=== PATIENT | female | born 1985 | race American Indian/Alaskan Native ===

== ENCOUNTER 2020-09-03 15:49 | Emergency (ER) | payer SELFPAY ==
[~2020-09-03] VITALS: Ht 152.4 cm; Wt 64.0 kg
--- OUTSIDE RECORDS SUMMARY | ~2020-09-03 | XMS | Encounter Summary ---
Demographics + + + | Address | [address] | | | [place] [address] | + + + | Home Phone | | + + + | Preferred Language | Unknown | + + + | Marital Status | | + + + | Anglican Affiliation | 1041 | + + + | Race | Unknown | + + + | Ethnic Group | or | + + + Author + + + | Author | [facility] | | | and [place] | + + + | Organization | [facility] | | | and [place] | + + + | Address | Unknown | + + + | Phone | Unavailable | + + + Support + + + + + | Name | Relationship | Address | Phone | + + + + + | Kristine Gonzáles | ECON | [address] | | | | | [place] [address] | | + + + + + Care Team Providers + +------+ + | Care E Business Project Manager Name | Role | Phone | + +------+ + PCP | Unavailable | + +------+ + Encounter Details +--------+ + + + + | Date | Type | Department | Care Team | Description | +--------+ + + + + | 08/26/ | Hospital | [facility] | | | | 2008 | Encounter | MED CTR EMERGENCY | | | | | | CENTER [address] | | | | | | [place] | | | | | | [address] | | | | | | [phone] | | | +--------+ + + + + Social History + +-------+ +--------+------+ | Tobacco Use | Types | Packs/Day | Years | Date | | | | | Used | | + +-------+ +--------+------+ | Never Assessed | | | | | + +-------+ +--------+------+ + + + | Sex Assigned at | Date Recorded | | | | + + + | Not on file | | + + + documented as of this encounter Plan of Treatment Not on filedocumented as of this encounter Visit Diagnoses Not on filedocumented in this encounter"
--- OUTSIDE RECORDS SUMMARY | ~2020-09-03 | XMS | Encounter Summary ---
Demographics + + + | Address | [address] | | | [place] [address] | + + + | Home Phone | | + + + | Preferred Language | Unknown | + + + | Marital Status | | + + + | Anabaptist Affiliation | 1041 | + + + | Race | Unknown | + + + | Ethnic Group | or | + + + Author + + + | Author | [facility] | | | and [place] | + + + | Organization | [facility] | | | [...] [address] | | | | | [place] [address] | | + + + + + Care Team Providers + +------+ + | Care Mis Specialist Name | Role | Phone | + +------+ + PCP | Unavailable | + +------+ + Encounter Details +--------+ + + + + | Date | Type | Department | Care Team | Description | +--------+ + + + + | 12/04/ | Hospital | [facility] | | | | 1991 | Encounter | MED CTR EMERGENCY | | | | | | CENTER [address] | | | | | | [place] | | | | | | [address] | | | | | | [phone] | | | +--------+ + + + [...]
--- OUTSIDE RECORDS SUMMARY | ~2020-09-03 | XMS | Encounter Summary ---
Demographics + + + | Address | [address] | | | [place] [address] | + + + | Home Phone | | + + + | Preferred Language | Unknown | + + + | Marital Status | | + + + | Episcopal Affiliation | 1041 | + + + | Race | Unknown | + + + | Ethnic Group | or | + + + Author + + + | Author | [facility] | | | and [place] | + + + | Organization | [facility] | | | [...] [place] | | | | | [place] [address] | | + + + + + Care Team Providers + +------+ + | Care Food Preparation Kitchen Aide Name | Role | Phone | + +------+ + PCP | Unavailable | + +------+ + Encounter Details +--------+ + + + + | Date | Type | Department | Care Team | Description | +--------+ + + + + | 04/30/ | Hospital | [facility] | | | | 2004 | Encounter | MED CTR EMERGENCY | | | | | | CENTER [address] | | | | | | [place] | | | | | | [address] | | | | | | [phone] | | | +--------+ + + + [...]
--- OUTSIDE RECORDS SUMMARY | ~2020-09-03 | XMS | Encounter Summary ---
Demographics + + + | Address | [address] | | | [place] [address] | + + + | Home Phone | | + + + | Preferred Language | Unknown | + + + | Marital Status | | + + + | Sabianism Affiliation | 1041 | + + + | Race | Unknown | + + + | Ethnic Group | or | + + + Author + + + | Author | [facility] | | | and [place] | + + + | Organization | [facility] | | | and [place] | + + + | Address | Unknown | + + + | Phone | Unavailable | + + + Support + + + + + | Name | Relationship | Address | Phone | + + + + + | Kristine Gonzáles | ECON | [address] | | | | | [place] [address] | | + + + + + Care Team Providers + +------+ + | Care Shelter Advocate Name | Role | Phone | + +------+ + PCP | Unavailable | + +------+ + Encounter Details +--------+ + + + + | Date | Type | Department | Care Team | Description | +--------+ + + + + | 05/03/ | Hospital | [facility] | Roberto Dhaliwal, | | | 2001 | Encounter | MED CTR WOMENS | [address] | | | | | [facility] [address] | [place] | | | | | [address], | [place] [address] | | | | | [place] [address] | [phone] | | | | | [phone] | | | +--------+ + + + [...]
--- OUTSIDE RECORDS SUMMARY | ~2020-09-03 | XMS | Encounter Summary ---
Demographics + + + | Address | [address] | | | [place] [address] | + + + | Home Phone | | + + + | Preferred Language | Unknown | + + + | Marital Status | | + + + | Yazdanism Affiliation | 1041 | + + + | Race | Unknown | + + + | Ethnic Group | or | + + + Author + + + | Author | [facility] | | | and [place] | + + + | Organization | [facility] | | | and [place] | + + + | Address | Unknown | + + + | Phone | Unavailable | + + + Support + + + + + | Name | Relationship | Address | Phone | + + + + + | Kristine Gonzáles | ECON | [address] | | | | | [place] [address] | | + + + + + Care Team Providers + +------+ + | Care Steel Sash Erector Name | Role | Phone | + +------+ + PCP | Unavailable | + +------+ + Encounter Details +--------+ + + + + | Date | Type | Department | Care Team | Description | +--------+ + + + + | 01/09/ | Hospital | [facility] | | | | 1992 | Encounter | MED CTR EMERGENCY | | | | | | CENTER [address] | | | | | | [place] | | | | | | [address] | | | | | | [phone] | | | +--------+ + + + [...]
--- OUTSIDE RECORDS SUMMARY | ~2020-09-03 | XMS | Encounter Summary ---
Demographics + + + | Address | [address] | | | [place] [address] | + + + | Home Phone | | + + + | Preferred Language | Unknown | + + + | Marital Status | | + + + | Muslim Affiliation | 1041 | + + + [...] | | | | | [place] [address] | | + + + + + Care Team Providers + +------+ + | Care Shingle Grader Name | Role | Phone | + +------+ + PCP | Unavailable | + +------+ + Encounter Details +--------+ + + + + | Date | Type | Department | Care Team | Description | +--------+ + + + + | 02/06/ | Hospital | [facility] | | | | 2008 | Encounter | MED CTR XRAY [address] | | | | | | [address] | | | | | | [place] [address] | | | | | | [phone] | | | +--------+ + + + [...]
--- OUTSIDE RECORDS SUMMARY | ~2020-09-03 | XMS | Encounter Summary ---
Demographics + + + | Address | [address] | | | [place] [address] | + + + | Home Phone | | + + + | Preferred Language | Unknown | + + + | Marital Status | | + + + | Sikhism Affiliation | 1041 | + + + | Race | Unknown | + + + | Ethnic Group | or | + + + Author + + + | Author | [facility] | | | and [place] | + + + | Organization | [facility] | | | [...] [place] | | | | | [place] [address] | | + + + + + Care Team Providers + +------+ + | Care Partition Assembly Machine Operator Name | Role | Phone | + +------+ + PCP | Unavailable | + +------+ + Encounter Details +--------+ + + + + | Date | Type | Department | Care Team | Description | +--------+ + + + + | 10/05/ | Hospital | [facility] | | | | 1995 | Encounter | MED CTR EMERGENCY | | | | | | CENTER [address] | | | | | | [place] | | | | | | [address] | | | | | | [phone] | | | +--------+ + + + [...]
--- OUTSIDE RECORDS SUMMARY | ~2020-09-03 | XMS | Encounter Summary ---
Demographics + + + | Address | [address] | | | [place] [address] | + + + | Home Phone | | + + + | Preferred Language | Unknown | + + + | Marital Status | | + + + | Moravian Affiliation | 1041 | + + + | Race | Unknown | + + + | Ethnic Group | or | + + + Author + + + | Author | [facility] | | | and [place] | + + + | Organization | [facility] | | | and [place] | + + + | Address | Unknown | + + + | Phone | Unavailable | + + + Support + + + + + | Name | Relationship | Address | Phone | + + + + + | Kristine Gonzáles | ECON | [address] | | | | | [place] [address] | | + + + + + Care Team Providers + +------+ + | Care 21 Dealer Name | Role | Phone | + +------+ + PCP | Unavailable | + +------+ + Encounter Details +--------+ + + + + | Date | Type | Department | Care Team | Description | +--------+ + + + + | 05/22/ | Hospital | [facility] | Daryn Hyatt | | | 2001 | Encounter | MED CTR EMERGENCY | MD Crist[address] | | | | | [place] [address] | [place] | | | | | [place], [place] | [place] [address] | | | | | [address] | [phone] | | | | | [phone] | | | +--------+ + + + [...]
--- OUTSIDE RECORDS SUMMARY | ~2020-09-03 | XMS | Encounter Summary ---
Demographics + + + | Address | [address] | | | [place] [address] | + + + | Home Phone | | + + + | Preferred Language | Unknown | + + + | Marital Status | | + + + | Samaritan Affiliation | 1041 | + + + | Race | Unknown | + + + | Ethnic Group | or | + + + Author + + + | Author | [facility] | | | and [place] | + + + | Organization | [facility] | | | and [...] | | | | | [place] [address] | | + + + + + Care Team Providers + +------+ + | Care Sports Medicine Masseur Name | Role | Phone | + +------+ + PCP | Unavailable | + +------+ + Encounter Details +--------+ + + + + | Date | Type | Department | Care Team | Description | +--------+ + + + + | 01/15/ | Hospital | [facility] | | | | 2003 | Encounter | MED CTR WOMENS | | | | | | [facility] [address] | | | | | | [address], | | | | | | [place] [address] | | | | | | [phone] | | | +--------+ + + + [...]
--- OUTSIDE RECORDS SUMMARY | ~2020-09-03 | XMS | Encounter Summary ---
Demographics + + + | Address | [address] | | | [place] [address] | + + + | Home Phone | | + + + | Preferred Language | Unknown | + + + | Marital Status | | + + + | Rastafarian Affiliation | 1041 | + + + | Race | Unknown | + + + | Ethnic Group | or | + + + Author + + + | Author | [facility] | | | and [place] | + + + | Organization | [facility] | | | and [place] | + + + | Address | Unknown | + + + | Phone | Unavailable | + + + Support + + + + + | Name | Relationship | Address | Phone | + + + + + | Kristine Gonzáles | ECON | [address] | | | | | [place] [address] | | + + + + + Care Team Providers + +------+ + | Care Business Support Professional Name | Role | Phone | + +------+ + PCP | Unavailable | + +------+ + Encounter Details +--------+ + + + + | Date | Type | Department | Care Team | Description | +--------+ + + + + | 06/09/ | Hospital | [facility] | | | | 1994 | Encounter | MED CTR EMERGENCY | | | | | | CENTER [address] | | | | | | [place] | | | | | | [address] | | | | | | [phone] | | | +--------+ + + + [...]
--- OUTSIDE RECORDS SUMMARY | ~2020-09-03 | XMS | Encounter Summary ---
Demographics + + + | Address | [address] | | | [place] [address] | + + + | Home Phone | | + + + | Preferred Language | Unknown | + + + | Marital Status | | + + + | Gnosticist Affiliation | 1041 | + + + | Race | Unknown | + + + | Ethnic Group | or | + + + Author + + + | Author | [facility] | | | and [place] | + + + | Organization | [facility] | | | [...] | | | | | [place] [address] | | + + + + + Care Team Providers + +------+ + | Care Clinical Dental Technician Name | Role | Phone | + +------+ + PCP | Unavailable | + +------+ + Encounter Details +--------+ + + + + | Date | Type | Department | Care Team | Description | +--------+ + + + + | 04/30/ | Hospital | [facility] | Roberto Dhaliwal, | | | 2001 | Encounter | MED CTR WOMENS | [address] | | | | | [facility] [address] | [place] | | | | | [address], | [place] [address] | | | | | [place] [address] | [phone] | | | | | [phone] | | | +--------+ + + + [...]
--- OUTSIDE RECORDS SUMMARY | ~2020-09-03 | XMS | Encounter Summary ---
Demographics + + + | Address | [address] | | | [place] [address] | + + + | Home Phone | | + + + | Preferred Language | Unknown | + + + | Marital Status | | + + + | Nondenominational Affiliation | 1041 | + + + | Race | Unknown | + + + | Ethnic Group | or | + + + Author + + + | Author | [facility] | | | and [place] | + + + | Organization | [facility] | | [...] [place] | | | | | [place] [address] | | + + + + + Care Team Providers + +------+ + | Care Air Sealing Technician Name | Role | Phone | + +------+ + PCP | Unavailable | + +------+ + Encounter Details +--------+ + + + + | Date | Type | Department | Care Team | Description | +--------+ + + + + | 06/10/ | Hospital | [facility] | | | | 2001 | Encounter | MED CTR EMERGENCY | | | | | | CENTER [address] | | | | | | [place] | | | | | | [address] | | | | | | [phone] | | | +--------+ + + + [...]
--- OUTSIDE RECORDS SUMMARY | ~2020-09-03 | XMS | Encounter Summary ---
Demographics + + + | Address | [address] | | | [place] [address] | + + + | Home Phone | | + + + | Preferred Language | Unknown | + + + | Marital Status | | + + + | Baptism Affiliation | 1041 | + + + | Race | Unknown | + + + | Ethnic Group | or | + + + Author + + + | Author | [facility] | | | and [place] | + + + | Organization | [facility] | | | and [place] | + + + | Address | Unknown | + + + | Phone | Unavailable | + + + Support + + + + + | Name | Relationship | Address | Phone | + + + + + | Kristine Gonzáles | ECON | [address] | | | | | [place] [address] | | + + + + + Care Team Providers + +------+ + | Care Front Window Cashier Name | Role | Phone | + +------+ + PCP | Unavailable | + +------+ + Encounter Details +--------+ + + + + | Date | Type | Department | Care Team | Description | +--------+ + + + + | 07/22/ | Abstract | [place] [facility] | DATA MIGRATION ODIN | | | 2011 | | Conversion Location | SR | | | | | [address] [facility] | | | | | | [place], [place] | | | | | | [address] | | | | | | [phone] | | | +--------+ + + + [...] + + documented as of this encounter Last Filed Vital Signs + + + + + | Vital Sign | Reading | Time Taken | Comments | + + + + + | Blood Pressure | 105/62 | 03/11/2011 12:00 AM | | | | | PDT | | + + + + + | Pulse | - | - | | + + + + + | Temperature | - | - | | + + + + + | Respiratory Rate | - | - | | + + + + + | Oxygen Saturation | - | - | | + + + + + | Inhaled Oxygen | - | - | | | Concentration | | | | + + + + + | Weight | 61.7 kg (136 lb) | 03/11/2011 12:00 AM | | | | | PDT | | + + + + + | Height | 152.4 cm (5') | 04/12/2010 12:00 AM | | | | | PDT | | + + + + + | Body Mass Index | 26.56 | 04/12/2010 12:00 AM | | | | | PDT | | + + + + + documented in this encounter Plan of Treatment Not on filedocumented as of this encounter Visit Diagnoses Not on filedocumented in this encounter"
--- OUTSIDE RECORDS SUMMARY | ~2020-09-03 | XMS | Encounter Summary ---
Demographics + + + | Address | [address] | | | [place] [address] | + + + | Home Phone | | + + + | Preferred Language | Unknown | + + + | Marital Status | | + + + | Church Affiliation | 1041 | + + + | Race | Unknown | + + + | Ethnic Group | or | + + + Author + + + | Author | [facility] | | | and [place] | + + + | Organization | [facility] | | | [...] [place] | | | | | [place] [address] | | + + + + + Care Team Providers + +------+ + | Care Lobby Concierge Name | Role | Phone | + +------+ + PCP | Unavailable | + +------+ + Encounter Details +--------+ + + + + | Date | Type | Department | Care Team | Description | +--------+ + + + + | 11/20/ | Hospital | [facility] | Benjy Tripathi | Sprain and Strain of | | 2008 | Encounter | [address] | [address] | Unspecified Site of | | | | [address] | [place] [address] | Wrist | | | | [place], [place] | [phone] | | | | | [address] | | | | | | [phone] | | | +--------+ + + + [...] filedocumented as of this encounter Visit Diagnoses + + | Diagnosis | + + | Sprain of wrist, unspecified site | + + documented in this encounter"
--- OUTSIDE RECORDS SUMMARY | ~2020-09-03 | XMS | Encounter Summary ---
Demographics + + + | Address | [address] | | | [place] [address] | + + + | Home Phone | | + + + | Preferred Language | Unknown | + + + | Marital Status | | + + + | Latter-Day Affiliation | 1041 | + + + | Race | Unknown | + + + | Ethnic Group | or | + + + Author + + + | Author | [facility] | | | and [place] | + + + | Organization | [facility] | | | and [...] | | | | | [place] [address] | | + + + + + Care Team Providers + +------+ + | Care Abstract Searcher Name | Role | Phone | + +------+ + PCP | Unavailable | + +------+ + Encounter Details +--------+ + + + + | Date | Type | Department | Care Team | Description | +--------+ + + + + | 06/19/ | Hospital | [facility] | | | | 2002 | Encounter | MED CTR WOMENS | | | | | | [facility] [address] | | | | | | [address], | | | | | | [place] [address] | | | | | | [phone] | | | +--------+ + + + [...]
--- OUTSIDE RECORDS SUMMARY | ~2020-09-03 | XMS | Encounter Summary ---
Demographics + + + | Address | [address] | | | [place] [address] | + + + | Home Phone | | + + + | Preferred Language | Unknown | + + + | Marital Status | | + + + | Tenriism Affiliation | 1041 | + + + | Race | Unknown | + + + | Ethnic Group | or | + + + Author + + + | Author | [facility] | | | and [place] | + + + | Organization | [facility] | | | [...] | | | | | [place] [address] | | + + + + + Care Team Providers + +------+ + | Care Germination Worker Name | Role | Phone | + +------+ + PCP | Unavailable | + +------+ + Encounter Details +--------+ + + + + | Date | Type | Department | Care Team | Description | +--------+ + + + + | 01/03/ | Hospital | [facility] | Abdullahi Ferreira | | | 2001 | Encounter | MED CTR WOMENS | [place] [address] | | | | | [facility] [address] | [place] | | | | | [address], | [address] | | | | | [place] [address] | [phone] | | | | | [phone] | | | +--------+ + + + [...]
--- OUTSIDE RECORDS SUMMARY | ~2020-09-03 | XMS | Encounter Summary ---
Demographics + + + | Address | [address] | | | [place] [address] | + + + | Home Phone [...] | | | | | [place] [address] | | + + + + + Care Team Providers + +------+ + | Care Transfer Table Operator Name | Role | Phone | + +------+ + PCP | Unavailable | + +------+ + Encounter Details +--------+ + + + + | Date | Type | Department | Care Team | Description | +--------+ + + + + | 09/13/ | Hospital | [facility] | | | | 2002 | Encounter | MED CTR GENERIC OP | | | | | | CONV DEPT [address] | | | | | | [place], | | | | | | [place] [address] | | | | | | [phone] | | | +--------+ + + + [...]
--- OUTSIDE RECORDS SUMMARY | ~2020-09-03 | XMS | Encounter Summary ---
Demographics + + + | Address | [address] | | | [place] [address] | + + + | Home Phone | | + + + | Preferred Language | Unknown | + + + | Marital Status | | + + + | Sabianism Affiliation | 1041 | + + + | Race | Unknown | + + + | Ethnic Group | or | + + + Author + + + | Author | [facility] | | | and [place] | + + + | Organization | [facility] | | [...] [place] | | | | | [place] [address] | | + + + + + Care Team Providers + +------+ + | Care Director Nursery School Name | Role | Phone | + +------+ + PCP | Unavailable | + +------+ + Encounter Details +--------+ + + + + | Date | Type | Department | Care Team | Description | +--------+ + + + + | 08/12/ | Hospital | [facility] | | | | 2001 | Encounter | MED CTR EMERGENCY | | | | | | CENTER [address] | | | | | | [place] | | | | | | [address] | | | | | | [phone] | | | +--------+ + + + [...]
--- OUTSIDE RECORDS SUMMARY | ~2020-09-03 | XMS | Encounter Summary ---
Demographics + + + | Address | [address] | | | [place] [address] | + + + | Home Phone | | + + + | Preferred Language | Unknown | + + + | Marital Status | | + + + | Amish Affiliation | 1041 | + + + | Race | Unknown | + + + | Ethnic Group | or | + + + Author + + + | Author | [facility] | | | and [place] | + + + | Organization | [facility] | | [...] [place] | | | | | [place] [address] | | + + + + + Care Team Providers + +------+ + | Care Relationship Consultant Name | Role | Phone | + +------+ + PCP | Unavailable | + +------+ + Encounter Details +--------+ + + + + | Date | Type | Department | Care Team | Description | +--------+ + + + + | 05/30/ | Hospital | [facility] | Daryn Hyatt | | | 2001 | Encounter | MED CTR EMERGENCY | MD Cristian [address] | | | | | [place] [address] | [place] | | | | | [place], [place] | [place] [address] | | | | | [address] | [phone] | | | | | [phone] | | | +--------+ + + + [...]
--- OUTSIDE RECORDS SUMMARY | ~2020-09-03 | XMS | Encounter Summary ---
Demographics + + + | Address | [address] | | | [place] [address] | + + + | Home Phone | | + + + | Preferred Language | Unknown | + + + | Marital Status | | + + + | Baptism Affiliation | 1041 | + + + | Race | Unknown | + + + | Ethnic Group | or | + + + Author + + + | Author | [facility] | | | and [place] | + + + | Organization | [facility] | | | and [place] | + + + | Address | Unknown | + + + | Phone | Unavailable | + + + Support + + + + + | Name | Relationship | Address | Phone | + + + + + | Kristine Gonzáles | ECON | [address] | | | | | [place] [address] | | + + + + + Care Team Providers + +------+ + | Care Utility Appraiser Name | Role | Phone | + +------+ + PCP | Unavailable | + +------+ + Encounter Details +--------+ + + + + | Date | Type | Department | Care Team | Description | +--------+ + + + + | 05/21/ | Hospital | [facility] | | | | 2001 | Encounter | MED CTR EMERGENCY | | | | | | CENTER [address] | | | | | | [place] | | | | | | [address] | | | | | | [phone] | | | +--------+ + + + [...]
--- OUTSIDE RECORDS SUMMARY | ~2020-09-03 | XMS | Encounter Summary ---
Demographics + + + | Address | [address] | | | [place] [address] | + + + | Home Phone | | + + + | Preferred Language | Unknown | + + + | Marital Status | | + + + | Confucianist Affiliation | 1041 | + + + | Race | Unknown | + + + | Ethnic Group | or | + + + Author + + + | Author | [facility] | | | and [place] | + + + | Organization | [facility] | | [...] [address] | | | | | [place] [address] | | + + + + + Care Team Providers + +------+ + | Care Section Beamer Name | Role | Phone | + +------+ + PCP | Unavailable | + +------+ + Encounter Details +--------+ + + + + | Date | Type | Department | Care Team | Description | +--------+ + + + + | 10/13/ | Hospital | [facility] | | | | 1999 | Encounter | MED CTR EMERGENCY | | | | | | CENTER [address] | | | | | | [place] | | | | | | [address] | | | | | | [phone] | | | +--------+ + + + [...]
--- OUTSIDE RECORDS SUMMARY | ~2020-09-03 | XMS | Encounter Summary ---
Demographics + + + | Address | [address] | | | [place] [address] | + + + | Home Phone | | + + + | Preferred Language | Unknown | + + + | Marital Status | | + + + | Latter Day Affiliation | 1041 | + + + | Race | Unknown | + + + | Ethnic Group | or | + + + Author + + + | Author | [facility] | | | and [place] | + + + | Organization | [facility] | | | and [place] | + + + | Address | Unknown | + + + | Phone | Unavailable | + + + Support + + + + + | Name | Relationship | Address | Phone | + + + + + | Kristine Gonzáles | ECON | [address] | | | | | [place] [address] | | + + + + + Care Team Providers + +------+ + | Care Work Manager Name | Role | Phone | + +------+ + PCP | Unavailable | + +------+ + Encounter Details +--------+ + + + + | Date | Type | Department | Care Team | Description | +--------+ + + + + | 02/01/ | Hospital | [facility] | | | | 2003 - | Encounter | MED CTR [facility] | | | | | | [facility] [address] | | | | 02/03/ | | [address], | | | | 2003 | | [place] [address] | | | | | | [phone] | | | +--------+ + + + [...]
--- OUTSIDE RECORDS SUMMARY | ~2020-09-03 | XMS | Encounter Summary ---
Demographics + + + | Address | [address] | | | [place] [address] | + + + | Home Phone | | + + + | Preferred Language | Unknown | + + + | Marital Status | | + + + | Rastafari Affiliation | 1041 | + + + [...] [address] | | | | | [place] [address] | | + + + + + Care Team Providers + +------+ + | Care Granite Cutter Name | Role | Phone | + +------+ + PCP | Unavailable | + +------+ + Encounter Details +--------+ + + + + | Date | Type | Department | Care Team | Description | +--------+ + + + + | 11/02/ | Hospital | [facility] | | | | 1991 | Encounter | MED CTR EMERGENCY | | | | | | CENTER [address] | | | | | | [place] | | | | | | [address] | | | | | | [phone] | | | +--------+ + + + [...]
--- OUTSIDE RECORDS SUMMARY | ~2020-09-03 | XMS | Encounter Summary ---
Demographics + + + | Address | [address] | | | [place] [address] | + + + | Home Phone | | + + + | Preferred Language | Unknown | + + + | Marital Status | | + + + | Druze Affiliation | 1041 | + + + | Race | Unknown | + + + | Ethnic Group | or | + + + Author + + + | Author | [facility] | | | and [place] | + + + | Organization | [facility] | [...] [address] | | | | | [place] [address] | | + + + + + Care Team Providers + +------+ + | Care Central Supply Worker Name | Role | Phone | + +------+ + PCP | Unavailable | + +------+ + Encounter Details +--------+ + + + + | Date | Type | Department | Care Team | Description | +--------+ + + + + | 05/16/ | Hospital | [facility] | | | | 2003 | Encounter | MED CTR EMERGENCY | | | | | | CENTER [address] | | | | | | [place] | | | | | | [address] | | | | | | [phone] | | | +--------+ + + + [...]
--- OUTSIDE RECORDS SUMMARY | ~2020-09-03 | XMS | Encounter Summary ---
Demographics + + + | Address | [address] | | | [place] [address] | + + + | Home Phone | | + + + | Preferred Language | Unknown | + + + | Marital Status | | + + + | Presybeterian Affiliation | 1041 | + + + | Race | Unknown | + + + | Ethnic Group | or | + + + Author + + + | Author | [facility] | | | and [place] | + + + | Organization | [facility] | | | [...] | | | | | [place] [address] | | + + + + + Care Team Providers + +------+ + | Care Claims Adjustor Name | Role | Phone | + +------+ + PCP | Unavailable | + +------+ + Encounter Details +--------+ + + + + | Date | Type | Department | Care Team | Description | +--------+ + + + + | 05/10/ | Hospital | [facility] | | | | 2001 - | Encounter | MED CTR [facility] | | | | | | [facility] [address] | | | | 05/12/ | | [address], | | | | 2001 | | [place] [address] | | | | | | [phone] | | | +--------+ + + + [...]
--- OUTSIDE RECORDS SUMMARY | ~2020-09-03 | XMS | Encounter Summary ---
Demographics + + + | Address | [address] | | | [place] [address] | + + + | Home Phone | | + + + | Preferred Language | Unknown | + + + | Marital Status | | + + + | Sabianism Affiliation | 1041 | + + + | Race | Unknown | + + + | Ethnic Group | or | + + + Author + + + | Author | [facility] | | | and [place] | + + + | Organization | [facility] | | | and [...] | | | | | [place] [address] | | + + + + + Care Team Providers + +------+ + | Care Radio Frequency Technician Name | Role | Phone | + +------+ + PCP | Unavailable | + +------+ + Encounter Details +--------+ + + + + | Date | Type | Department | Care Team | Description | +--------+ + + + + | 05/02/ | Hospital | [facility] | Tejas Logan | | | 2002 | Encounter | MED CTR LABORATORY | A, DO [address] | | | | | [address] | [address] [place], | | | | | [place] | [place] [address] | | | | | [address] | [phone] | | | | | [phone] | | | +--------+ + + + [...]
--- OUTSIDE RECORDS SUMMARY | ~2020-09-03 | XMS | Encounter Summary ---
Demographics + + + | Address | [address] | | | [place] [address] | + + + | Home Phone | | + + + | Preferred Language | Unknown | + + + | Marital Status | | + + + | Confucianist Affiliation | 1041 | + + + | Race | Unknown | + + + | Ethnic Group | or | + + + Author + + + | Author | [facility] | | | and [place] | + + + | Organization | [facility] | | | and [...] | | | | | [place] [address] | | + + + + + Care Team Providers + +------+ + | Care Reception Specialist Name | Role | Phone | + +------+ + PCP | Unavailable | + +------+ + Encounter Details +--------+ + + + + | Date | Type | Department | Care Team | Description | +--------+ + + + + | 04/01/ | Hospital | [facility] | | | | 2001 | Encounter | MED CTR [facility] | | | | | | [facility] [address] | | | | | | [address], | | | | | | [place] [address] | | | | | | [phone] | | | +--------+ + + + [...]
--- OUTSIDE RECORDS SUMMARY | ~2020-09-03 | XMS | Encounter Summary ---
Demographics + + + | Address | [address] | | | [place] [address] | + + + | Home Phone | | + + + | Preferred Language | Unknown | + + + | Marital Status | | + + + | Latter Day Affiliation | 1041 | + + + | Race | Unknown | + + + | Ethnic Group | or | + + + Author + + + | Author | [facility] | | | and [place] | + + + | Organization | [facility] | | [...] | | | | | [place] [address] | | + + + + + Care Team Providers + +------+ + | Care Mechanical Assembly Name | Role | Phone | + +------+ + PCP | Unavailable | + +------+ + Encounter Details +--------+ + + + + | Date | Type | Department | Care Team | Description | +--------+ + + + + | 03/24/ | Hospital | [facility] | | | | 2001 | Encounter | MED CTR WOMENS | | | | | | [facility] [address] | | | | | | [address], | | | | | | [place] [address] | | | | | | [phone] | | | +--------+ + + + [...]
--- OUTSIDE RECORDS SUMMARY | ~2020-09-03 | XMS | Encounter Summary ---
Demographics + + + | Address | [address] | | | [place] [address] | + + + | Home Phone | | + + + | Preferred Language | Unknown | + + + | Marital Status | | + + + | Hoahaoism Affiliation | 1041 | + + + | Race | Unknown | + + + | Ethnic Group | or | + + + Author + + + | Author | [facility] | | | and [place] | + + + | Organization | [facility] | | | [...] [place] | | | | | [place] [address] | | + + + + + Care Team Providers + +------+ + | Care Hardware Installation Coordinator Name | Role | Phone | + +------+ + PCP | Unavailable | + +------+ + Encounter Details +--------+ + + + + | Date | Type | Department | Care Team | Description | +--------+ + + + + | 10/12/ | Hospital | [facility] | | | | 1999 | Encounter | MED CTR EMERGENCY | | | | | | CENTER [address] | | | | | | [place] | | | | | | [address] | | | | | | [phone] | | | +--------+ + + + [...]
--- OUTSIDE RECORDS SUMMARY | ~2020-09-03 | XMS | Encounter Summary ---
Demographics + + + | Address | [address] | | | [place] [address] | + + + | Home Phone | | + + + | Preferred Language | Unknown | + + + | Marital Status | | + + + | Mormonism Affiliation | 1041 | + + + | Race | Unknown | + + + | Ethnic Group | or | + + + Author + + + | Author | [facility] | | | and [place] | + + + | Organization | [facility] | [...] [address] | | | | | [place] [address] | | + + + + + Care Team Providers + +------+ + | Care Supervisor Self Service Store Name | Role | Phone | + +------+ + PCP | Unavailable | + +------+ + Encounter Details +--------+ + + + + | Date | Type | Department | Care Team | Description | +--------+ + + + + | 02/23/ | Hospital | [facility] | [place], | | | 2009 | Encounter | MED CTR XRAY [address] | [address] | | | | | [place] | [place] | | | | | [place], [place] [address] | [address] | | | | | [phone] | | | +--------+ + + + [...]
--- OUTSIDE RECORDS SUMMARY | ~2020-09-03 | XMS | Encounter Summary ---
Demographics + + + | Address | [address] | | | [place] [address] | + + + | Home Phone | | + + + | Preferred Language | Unknown | + + + | Marital Status | | + + + | Moravian Affiliation | 1041 | + + + | Race | Unknown | + + + | Ethnic Group | or | + + + Author + + + | Author | [facility] | | | and [place] | + + + | Organization | [facility] | | [...] | | | | | [place] [address] | | + + + + + Care Team Providers + +------+ + | Care Biodiesel Product Manager Name | Role | Phone | + +------+ + PCP | Unavailable | + +------+ + Encounter Details +--------+ + + + + | Date | Type | Department | Care Team | Description | +--------+ + + + + | 09/18/ | Hospital | [facility] | | | | 2003 | Encounter | MED CTR XRAY [address] | | | | | | [address] | | | | | | [place] [address] | | | | | | [phone] | | | +--------+ + + + [...]
--- OUTSIDE RECORDS SUMMARY | ~2020-09-03 | XMS | Encounter Summary ---
Demographics + + + | Address | [address] | | | [place] [address] | + + + | Home Phone | | + + + | Preferred Language | Unknown | + + + | Marital Status | | + + + | Religion Affiliation | 1041 | + + + | Race | Unknown | + + + | Ethnic Group | or | + + + Author + + + | Author | [facility] | | | and [place] | + + + | Organization | [facility] | | | and [place] | + + + | Address | Unknown | + + + | Phone | Unavailable | + + + Support + + + + + | Name | Relationship | Address | Phone | + + + + + | Kristine Gonzáles | ECON | [address] | | | | | [place] [address] | | + + + + + Care Team Providers + +------+ + | Care Senior Quality Manager Name | Role | Phone | + +------+ + PCP | Unavailable | + +------+ + Encounter Details +--------+ + + + + | Date | Type | Department | Care Team | Description | +--------+ + + + + | 08/23/ | Hospital | [facility] | | | | 2003 | Encounter | MED CTR GENERIC OP | | | | | | CONV DEPT [address] | | | | | | [place], | | | | | | [place] [address] | | | | | | [phone] | | | +--------+ + + + [...]
--- OUTSIDE RECORDS SUMMARY | ~2020-09-03 | XMS | Encounter Summary ---
Demographics + + + | Address | [address] | | | [place] [address] | + + + | Home Phone | | + + + | Preferred Language | Unknown | + + + | Marital Status | | + + + | Temple Affiliation | 1041 | + + + | Race | Unknown | + + + | Ethnic Group | or | + + + Author + + + | Author | [facility] | | | and [place] | + + + | Organization | [facility] | | | [...] [place] | | | | | [place] [address] | | + + + + + Care Team Providers + +------+ + | Care Clinical Ob Name | Role | Phone | + +------+ + PCP | Unavailable | + +------+ + Encounter Details +--------+ + + + + | Date | Type | Department | Care Team | Description | +--------+ + + + + | 02/07/ | Hospital | [facility] | | | | 2003 | Encounter | MED CTR EMERGENCY | | | | | | CENTER [address] | | | | | | [place] | | | | | | [address] | | | | | | [phone] | | | +--------+ + + + [...]
--- OUTSIDE RECORDS SUMMARY | ~2020-09-03 | XMS | Encounter Summary ---
Demographics + + + | Address | [address] | | | [place] [address] | + + + | Home Phone | | + + + | Preferred Language | Unknown | + + + | Marital Status | | + + + | Adventist Affiliation | 1041 | + + + | Race | Unknown | + + + | Ethnic Group | or | + + + Author + + + | Author | [facility] | | | and [place] | + + + | Organization | [facility] | | | [...] [place] | | | | | [place] [address] | | + + + + + Care Team Providers + +------+ + | Care Drawer Waxer Name | Role | Phone | + +------+ + PCP | Unavailable | + +------+ + Encounter Details +--------+ + + + + | Date | Type | Department | Care Team | Description | +--------+ + + + + | 12/05/ | Hospital | [facility] | | | | 2002 | Encounter | MED CTR EMERGENCY | | | | | | CENTER [address] | | | | | | [place] | | | | | | [address] | | | | | | [phone] | | | +--------+ + + + [...]
--- OUTSIDE RECORDS SUMMARY | ~2020-09-03 | XMS | Encounter Summary ---
Demographics + + + | Address | [address] | | | [place] [address] | + + + | Home Phone | | + + + | Preferred Language | Unknown | + + + | Marital Status | | + + + | Sabianist Affiliation | 1041 | + + + | Race | Unknown | + + + | Ethnic Group | or | + + + Author + + + | Author | [facility] | | | and [place] | + + + | Organization | [facility] | | | [...] | | | | | [place] [address] | | + + + + + Care Team Providers + +------+ + | Care Creative Recruiter Name | Role | Phone | + +------+ + PCP | Unavailable | + +------+ + Encounter Details +--------+ + + + + | Date | Type | Department | Care Team | Description | +--------+ + + + + | 12/31/ | Hospital | [facility] | | | | 2004 - | Encounter | MED CTR WOMENS | | | | | | [facility] [address] | | | | 01/02/ | | [address], | | | | 2004 | | [place] [address] | | | | | | [phone] | | | +--------+ + + + [...]
--- OUTSIDE RECORDS SUMMARY | ~2020-09-03 | XMS | Encounter Summary ---
Demographics + + + | Address | [address] | | | [place] [address] | + + + | Home Phone | | + + + | Preferred Language | Unknown | + + + | Marital Status | | + + + | Uatsdin Affiliation | [id number] | + + + [...] [address] | | | | | [place] [address] | | + + + + + Care Team Providers + +------+ + | Care Riveter Helper Name | Role | Phone | + +------+ + | No, Physician | PCP | Unavailable | + +------+ + Reason for Visit + + + | Reason | Comments | + + + | Leg Pain | | + + + | Sternum Pain | | + + + | Fall | | + + + Encounter Details +--------+ + + + + | Date | Type | Department | Care Team | Description | +--------+ + + + + | 07/03/ | Emergency | [facility] | Juan Carlos Lepe, | Sternal contusion, | | 2017 - | | [facility] | MD [address] | initial encounter | | | | CENTER [address] | [place] | (Primary Dx); | | 07/04/ | | [place] | [phone] | Contusion of | | 2016 | | [id number] | | multiple sites of | | | | [phone] | | right leg, initial | | | | | | encounter; Arm | | | | | | contusion, left, | | | | | | initial encounter | +--------+ + + + + Social History + + + +--------+------+ | Tobacco Use | Types | Packs/Day | Years | Date | | | | | Used | | + + + +--------+------+ | Current Every Day | Cigarettes | | | | | Smoker | | | | | + + + +--------+------+ + + +---------+ + | Alcohol Use | Drinks/Week | oz/Week | Comments | + + +---------+ + | Yes | | | occasionally | + + +---------+ + + + + | Sex Assigned at | Date Recorded | | | | + + + | Not on file | | + + + documented as of this encounter Last Filed Vital Signs + + + + + | Vital Sign | Reading | Time Taken | Comments | + + + + + | Blood Pressure | 100/85 | 07/04/2017 1:57 AM | | | | | PDT | | + + + + + | Pulse | 77 | 07/04/2017 1:57 AM | | | | | PDT | | + + + + + | Temperature | 36.9 C (98.4 F) | 07/03/2017 11:01 PM | | | | | PDT | | + + + + + | Respiratory Rate | 16 | 07/03/2017 11:01 PM | | | | | PDT | | + + + + + | Oxygen Saturation | 98% | 07/04/2017 1:56 AM | | | | | PDT | | + + + + + | Inhaled Oxygen | - | - | | | Concentration | | | | + + + + + | Weight | 54.4 kg (120 lb) | 07/03/2017 11:01 PM | | | | | PDT | | + + + + + | Height | 149.9 cm (4' 11") | 07/03/2017 11:01 PM | | | | | PDT | | + + + + + | Body Mass Index | 24.24 | 07/03/2017 11:01 PM | | | | | PDT | | + + + + + documented in this encounter Discharge Instructions AttachmentsThe following attachments cannot be sent through Care Everywhere.Soft Tissue Con tusion (Polish)documented in this encounter Medications at Time of Discharge + +------+ +---------+ + + | Medication | Sig | Dispensed | Refills | Start | End Date | | | | | | Date | | + +------+ +---------+ + + | | LIQD | | 0 | 07/23/20 | | | Pseudoeph-Doxylamine | | | | 12 | | | -DM-APAP (NYQUIL PO) | | | | | | + +------+ +---------+ + + documented as of this encounter ED Notes Juan Carlos Lepe MD - 07/03/2017 11:46 PM PDTFormatting of this note might be different fro m the original. eMERGENCY dEPARTMENT eNCOUnter CHIEF COMPLAINT Chief Complaint Patient presents with Leg Pain Sternum Pain Fall HPI Елена Gonzáles is a 32 y.o. female who presents complaining of pain and bruising over h er lower sternum, right knee, and left elbow. She states that 2 days ago she fell [place] the [place] some packages and bruised up these areas. She is able to breathe but has some pain with deep inspiration in her sternum. She denies any abdominal pain. She denies any li ghtheadedness or syncope. She also complains of pain in her right anterior knee with associa sindhu bruising although she is able to walk albeit with pain. She also complains of some pain in the left elbow but no pain with range of motion. PAST MEDICAL HISTORY History reviewed. No pertinent past medical history. SURGICAL HISTORY History reviewed. No pertinent surgical history. CURRENT MEDICATIONS Discharge Medication List as of 07/04/2017 2:16 CONTINUE these medications which have NOT CHANGED Details Okuwsqerk-Oggyofoksk-EY-APAP (NYQUIL PO) LIQD ALLERGIES No Known Allergies FAMILY HISTORY History reviewed. No pertinent family history. SOCIAL HISTORY Social History Social History Marital status: Spouse name: N/A Number of children: N/A Years of education: N/A Social History Main Topics Smoking status: Current Every Day Smoker Types: Cigarettes Smokeless tobacco: None Alcohol use Yes Comment: occasionally Drug use: No Sexual activity: Not Asked Other Topics Concern None Social History Narrative None REVIEW OF SYSTEMS A 12 system review of systems is otherwise negative except as noted in the HPI above. PHYSICAL EXAM VITAL SIGNS: (first vital signs):Temp: 36.9 C (98.4 F) Pulse: 108 Resp: 16 SpO2: 100 % BP: (!) 88/64 Constitutional: Well developed, Well nourished, No acute distress, Non-toxic appearance. HENT: Normocephalic, Atraumatic, Bilateral external ears normal, Oral mucosa moist, wood heel finisher ior pharynx no exudates, Nose normal. Neck-supple, nontender, no meningismus, No stridor. Eyes: PERRL, EOMI, Conjunctiva normal, No discharge. Respiratory: Breath sounds equal bilaterally, no adventitious sounds, lower sternal tender ness to palpation with associated ecchymosis, no crepitus or step-off Cardiovascular: Normal rate, normal S1, S2, no murmurs, rubs, or gallops GI: Abdomen soft, non-tender, non-distended, normal bowel sounds, no CVA tenderness : Musculoskeletal: Intact distal pulses, ecchymosis over the right lower leg and knee with n ormal range of motion and no instability to the knee capsule or joint, tenderness over the l eft proximal forearm without any foreign bodies noted, normal range of motion of the left el bow without any tenderness. Back- No tenderness. Skin: Warm, Dry, ecchymosis over the lower sternum with associated tenderness, ecchymosis over the left forearm with associated tenderness, ecchymosis over the right lower leg with a ssociated tenderness Lymphatic: Neurologic: Alert & oriented x 3, Cranial nerves II-XII intact, Normal sensation, motor, a nd strength in all four extremities, No focal deficits noted. Psychiatric: Affect normal, Judgment normal, Mood normal. Labs Reviewed CBC WITH DIFFERENTIAL - Abnormal; Notable for the following: Result Value % Basophils 1.4 (*) All other components within normal limits COMPREHENSIVE METABOLIC PANEL - Normal PROTIME INR - Normal EXTRA GREEN TOP TUBE URINALYSIS WITH MICROSCOPIC RADIOLOGY CT Results: Ct Chest Abdomen Pelvis W Contrast Result Date: 07/04/2017 CT CHEST ABDOMEN AND PELVIS WITH CONTRAST CLINICAL INFORMATION: Retrosternal chest pain, an d abdominal pain. COMPARISON: None. PROCEDURE: Axial images through the chest, abdomen and p bryson after the administration of 70 ml Omnipaque 350 intravenous contrast. Multiplanar maurice nstructions. At least one of the following CT dose optimization techniques were used: Automa sindhu exposure control; Adjustment of mA and/or kV according to patient size; Use of iterative reconstruction technique. FINDINGS: CHEST Lungs, Pleura and Airways: No significant pulmona ry abnormality. No airway narrowing or obstruction. No pleural effusion or pneumothorax. Med iastinum: No significant pericardial, great vessel or esophageal abnormality. No mediastinal mass. Lymph Nodes: No adenopathy. ABDOMEN Liver and Biliary: No gallbladder or biliary abno rmality. No significant liver abnormality. Pancreas, Spleen and Adrenals: No pancreatitis or pancreatic mass. No splenomegaly, splenic mass or splenic hemorrhage. No significant adrena l abnormality. Kidneys: No hydronephrosis, calculus or solid renal mass. Normal symmetric r enal enhancement pattern. ABDOMEN AND PELVIS Bowel: No small bowel or colonic dilation or ad jacent inflammation. No appendiceal dilation or inflammation. Vessels: No significant abnorm ality in the aorta or its proximal branches. No significant abnormality in the portal veins, mesenteric veins or systemic veins. Lymph Nodes: No adenopathy. Peritoneum and Retroperiton eum: No intraperitoneal free air, ascites or peritoneal mass. No significant retroperitoneal abnormality. PELVIS Genitourinary: Distal ureters and bladder appear normal. No pelvic mas ses. The uterus is anteverted, with length of approximately 9.5 cm. No focal adnexal abnorm ality. BODY WALL Soft Tissues: No hernia, mass or hemorrhage. Bones: No acute fracture or ve rtebral end plate destruction. No lytic or blastic lesion. IMPRESSION: 1. No acute abnormali ty of the chest, abdomen, or pelvis. 2. No evidence of sternal or rib fracture. No vertebra l compression fracture. Signed by: Dr. Cornell Pyle Report sent: 07/04/2017 1:27:11 AM Right knee x-ray reveals no acute abnormalities. Chest x-ray PA and lateral showed no acute findings. ED COURSE & MEDICAL DECISION MAKING Pertinent Labs & Imaging studies reviewed. (See chart for details) Patient presented with significant pain in the chest associated with traumatic injury to th e chest. This was in the lower chest. In addition she had some injuries to the left arm and right knee. CT imaging was obtained after negative x-ray because of patient's symptoms and s howed no acute internal injuries. Patient was given some fentanyl for pain in the ER and kerrie l be discharged home with a take home pack of hydrocodone. She should return if worsening or new concerning symptoms develop. Last Set of Vital Signs: Temp: 36.9 C (98.4 F) Pulse: 77 Resp: 16 SpO2: 98 % BP: 100/85 FINAL IMPRESSION 1. Sternal contusion, initial encounter 2. Contusion of multiple sites of right leg, initial encounter 3. Arm contusion, left, initial encounter PLAN Follow-up Information Max Bauer MD. Specialty: Internal Medicine Why: As needed Contact information: [address] [facility] [place] [address] Discharge Medication List as of 07/04/2017 2:16 Juan Carlos Lepe MD 07/04/17 0256 Cynthia Babin RN - 07/03/2017 11:00 PM PDTPatient reports she tripped on a cracked sidewalk and fell two days ago. Now has bruising from right knee to right ankle and reports it hurts to bend kne e. Also reports pain behind sternum that is currently 06/19. Able to move ankle without exa cerbating pain. d ocumented in this encounter Plan of Treatment Not on filedocumented as of this encounter Procedures + +--------+ + + + | Procedure Name | Priori | Date/Time | Associated Diagnosis | Comments | | | ty | | | | + +--------+ + + + | CT CHEST ABDOMEN | STAT | 07/04/2017 | | Results for this | | PELVIS W CONTRAST | | 1:08 AM | | procedure are in the | | | | PDT | | results section. | + +--------+ + + + | EXTRA GREEN TOP TUBE | STAT | 07/04/2017 | | Results for this | | | | 12:35 AM | | procedure are in the | | | | PDT | | results section. | + +--------+ + + + | PROTIME INR | STAT | 07/04/2017 | | Results for this | | | | 12:35 AM | | procedure are in the | | | | PDT | | results section. | + +--------+ + + + | CBC WITH | STAT | 07/04/2017 | | Results for this | | DIFFERENTIAL | | 12:35 AM | | procedure are in the | | | | PDT | | results section. | + +--------+ + + + | COMPREHENSIVE | STAT | 07/04/2017 | | Results for this | | METABOLIC PANEL | | 12:35 AM | | procedure are in the | | | | PDT | | results section. | + +--------+ + + + | XR CHEST PA AND | STAT | 07/04/2017 | | Results for this | | LATERAL | | 12:07 AM | | procedure are in the | | | | PDT | | results section. | + +--------+ + + + | XR KNEE RIGHT 3 VW | STAT | 07/04/2017 | | Results for this | | | | 12:07 AM | | procedure are in the | | | | PDT | | results section. | + +--------+ + + + documented in this encounter Results CT Chest Abdomen Pelvis w Contrast (07/04/2017 1:08 AM PDT) + + | Specimen | + + | | + + + + + | Narrative | Performed At | + + + | CT CHEST ABDOMEN AND PELVIS WITH CONTRAST CLINICAL | [facility] | | INFORMATION: Retrosternal chest pain, and abdominal pain. | | | COMPARISON: None. PROCEDURE: Axial images through the chest, | | | abdomen and pelvis after the administration of 70 ml Omnipaque 350 | | | intravenous contrast. Multiplanar reconstructions. FINDINGS: | | | CHEST Lungs, Pleura and Airways: No significant pulmonary | | | abnormality. No airway narrowing or obstruction. No pleural effusion | | | or pneumothorax. Mediastinum: No significant pericardial, great | | | vessel or esophageal abnormality. No mediastinal mass. Lymph Nodes: | | | No adenopathy. ABDOMEN Liver and Biliary: No gallbladder or | | | biliary abnormality. No significant liver abnormality. Pancreas, | | | Spleen and Adrenals: No pancreatitis or pancreatic mass. No | | | splenomegaly, splenic mass or splenic hemorrhage. No significant | | | adrenal abnormality. Kidneys: No hydronephrosis, calculus or solid | | | renal mass. Normal symmetric renal enhancement pattern. ABDOMEN | | | AND PELVIS Bowel: No small bowel or colonic dilation or adjacent | | | inflammation. No appendiceal dilation or inflammation. Vessels: No | | | significant abnormality in the aorta or its proximal branches. No | | | significant abnormality in the portal veins, mesenteric veins or | | | systemic veins. Lymph Nodes: No adenopathy. Peritoneum and | | | Retroperitoneum: No intraperitoneal free air, ascites or peritoneal | | | mass. No significant retroperitoneal abnormality. PELVIS | | | Genitourinary: Distal ureters and bladder appear normal. No pelvic | | | masses. The uterus is anteverted, with length of approximately 9.5 | | | cm. No focal adnexal abnormality. BODY WALL Soft Tissues: No | | | hernia, mass or hemorrhage. Bones: No acute fracture or vertebral end | | | plate destruction. No lytic or blastic lesion. IMPRESSION- 1. | | | No acute abnormality of the chest, abdomen, or pelvis. 2. No evidence | | | of sternal or rib fracture. No vertebral compression fracture. | | | Dictated and Signed by: Dakotah Bolanos MD Electronically signed: | | | 07/04/2017 10:51 AM | | + + + + + | Procedure Note | + + | Romeo, Rad Results In 07/04/2017 10:54 AM PDT | | CT CHEST ABDOMEN AND PELVIS WITH CONTRAST | | | | CLINICAL INFORMATION: | | Retrosternal chest pain, and abdominal pain. | | | | COMPARISON: | | None. | | | | PROCEDURE: | | Axial images through the chest, abdomen and pelvis after the | | administration of 70 ml Omnipaque 350 intravenous contrast. Multiplanar | | reconstructions. | | | | FINDINGS: | | CHEST | | Lungs, Pleura and Airways: No significant pulmonary abnormality. No | | airway narrowing or obstruction. No pleural effusion or pneumothorax. | | Mediastinum: No significant pericardial, great vessel or esophageal | | abnormality. No mediastinal mass. | | Lymph Nodes: No adenopathy. | | | | ABDOMEN | | Liver and Biliary: No gallbladder or biliary abnormality. No | | significant liver abnormality. | | Pancreas, Spleen and Adrenals: No pancreatitis or pancreatic mass. No | | splenomegaly, splenic mass or splenic hemorrhage. No significant | | adrenal abnormality. | | Kidneys: No hydronephrosis, calculus or solid renal mass. Normal | | symmetric renal enhancement pattern. | | | | ABDOMEN AND PELVIS | | Bowel: No small bowel or colonic dilation or adjacent inflammation. No | | appendiceal dilation or inflammation. | | Vessels: No significant abnormality in the aorta or its proximal | | branches. No significant abnormality in the portal veins, mesenteric | | veins or systemic veins. | | Lymph Nodes: No adenopathy. | | Peritoneum and Retroperitoneum: No intraperitoneal free air, ascites or | | peritoneal mass. No significant retroperitoneal abnormality. | | | | PELVIS | | Genitourinary: Distal ureters and bladder appear normal. No pelvic | | masses. The uterus is anteverted, with length of approximately 9.5 cm. | | No focal adnexal abnormality. | | | | BODY WALL | | Soft Tissues: No hernia, mass or hemorrhage. | | Bones: No acute fracture or vertebral end plate destruction. No lytic | | or blastic lesion. | | | | IMPRESSION- | | 1. No acute abnormality of the chest, abdomen, or pelvis. | | 2. No evidence of sternal or rib fracture. No vertebral compression | | fracture. | | | | Dictated and Signed by: Dakotah Bolanos MD | | Electronically signed: 07/04/2017 10:51 AM | + + + +---------+ + + | Performing | Address | City/State/ZIP Code | Phone Number | | Organization | | | | + +---------+ + + | [facility] | | | | + +---------+ + + Extra Green Top Tube (07/04/2017 12:35 AM PDT) + +-------+ + + + | Component | Value | Ref Range | Performed | Pathologist | | | | | At | Signature | + +-------+ + + + | Extra Green | Done | | [facility] | | | Top Tube | | | [facility] | | | | | | [facility] | | | | | | CENTER - | | | | | | LABORATORY | | + +-------+ + + + + + | Specimen | + + | Blood | + + + + + + + | Performing | Address | City/State/ZIP Code | Phone Number | | Organization | | | | + + + + + | [facility] | [address] | [place] | [phone] | | [facility] | | [address] | | | - LABORATORY | | | | + + + + + Protime INR (07/04/2017 12:35 AM PDT) + + + + + + | Component | Value | Ref Range | Performed | Pathologist | | | | | At | Signature | + + + + + + | Prothrombin | 12.4 | 11.3 - 13.9 | [facility] | | | Time | | seconds | [facility] | | | | | | MEDICAL | | | | | | CENTER - | | | | | | LABORATORY | | + + + + + + | INR | 0.91Comment: Usual Oral | 0.90 - 1.10 | [facility] | | | | Anticoagulation Range: | | [facility] | | | | 2.0 - 3.0High | | MEDICAL | | | | Level Oral | | CENTER - | | | | Anticoagulation Range: | | LABORATORY | | | | 2.5 - 3.5 | | | | + + + + + + + + | Specimen | + + | Blood | + + + + + + + | Performing | Address | City/State/ZIP Code | Phone Number | | Organization | | | | + + + + + | [facility] | [address] | [place] | [phone] | | [facility] | | [address] | | | - LABORATORY | | | | + + + + + Comprehensive Metabolic Panel (07/04/2017 12:35 AM PDT) + + + + + + | Component | Value | Ref Range | Performed | Pathologist | | | | | At | Signature | + + + + + + | Na | 138 | 136 - 149 | [facility] | | | | | mmol/L | [facility] | | | | | | MEDICAL | | | | | | CENTER - | | | | | | LABORATORY | | + + + + + + | K | 3.8 | 3.5 - 5.1 | [facility] | | | | | mmol/L | [facility] | | | | | | MEDICAL | | | | | | CENTER - | | | | | | LABORATORY | | + + + + + + | Cl | 107 | 98 - 109 mmol/L | [facility] | | | | | | [facility] | | | | | | MEDICAL | | | | | | CENTER - | | | | | | LABORATORY | | + + + + + + | CO2 | 25 | 24 - 31 mmol/L | [facility] | | | | | | [facility] | | | | | | MEDICAL | | | | | | CENTER - | | | | | | LABORATORY | | + + + + + + | Anion Gap | 6 | 3 - 16 mmol/L | [facility] | | | | | | [facility] | | | | | | MEDICAL | | | | | | CENTER - | | | | | | LABORATORY | | + + + + + + | Glucose | 105 | 70 - 109 mg/dL | [facility] | | | | | | [facility] | | | | | | MEDICAL | | | | | | CENTER - | | | | | | LABORATORY | | + + + + + + | BUN | 13 | 7 - 18 mg/dL | [facility] | | | | | | [facility] | | | | | | [facility] | | | | | | CENTER - | | | | | | LABORATORY | | + + + + + + | Creatinine | 0.80 | 0.60 - 1.30 | [facility] | | | | | mg/dL | [facility] | | | | | | [facility] | | | | | | CENTER - | | | | | | LABORATORY | | + + + + + + | eGFR, | >60Comment: GLOMERULAR | >=60 | [facility] | | | non- | FILTRATION | mL/min/1.73m2 | [facility] | | | [place] | RATE,ESTIMATED | | MEDICAL | | | | mL/min/1.64p6Fghx than | | CENTER - | | | | 60 Chronic kidney | | LABORATORY | | | | disease,if found over a | | | | | | 3-month period.Less than | | | | | | 15 Kidney failureFor | | | | | | | | | | | | Americans,multiply the | | | | | | calculated GFR by 1.21. | | | | | | | | | | + + + + + + | Calcium | 8.3 | 8.3 - 10.5 | [facility] | | | | | mg/dL | [facility] | | | | | | MEDICAL | | | | | | CENTER - | | | | | | LABORATORY | | + + + + + + | Albumin | 3.9 | 3.2 - 5.0 g/dL | [facility] | | | | | | [facility] | | | | | | MEDICAL | | | | | | CENTER - | | | | | | LABORATORY | | + + + + + + | Bilirubin | 0.6Comment: This is an | 0.1 - 1.5 mg/dL | [facility] | | | Total | appended report. These | | [facility] | | | | results have been | | MEDICAL | | | | appended to a previously | | CENTER - | | | | preliminary verified | | LABORATORY | | | | report. | | | | + + + + + + | Total | 6.3 | 6.0 - 7.8 g/dL | [facility] | | | Protein | | | [facility] | | | | | | MEDICAL | | | | | | CENTER - | | | | | | LABORATORY | | + + + + + + | AST | 20Comment: This is an | 10 - 42 U/L | [facility] | | | | appended report. These | | [facility] | | | | results have been | | MEDICAL | | | | appended to a previously | | CENTER - | | | | preliminary verified | | LABORATORY | | | | report. | | | | + + + + + + | ALT | 17Comment: This is an | 6 - 45 U/L | [facility] | | | | appended report. These | | [facility] | | | | results have been | | MEDICAL | | | | appended to a previously | | CENTER - | | | | preliminary verified | | LABORATORY | | | | report. | | | | + + + + + + | Alkaline | 62Comment: This is an | 40 - 110 U/L | [facility] | | | Phosphatase | appended report. These | | [facility] | | | | results have been | | MEDICAL | | | | appended to a previously | | CENTER - | | | | preliminary verified | | LABORATORY | | | | report. | | | | + + + + + + | Globulin | 2.4 | 2.1 - 3.8 g/dL | [facility] | | | | | | [facility] | | | | | | MEDICAL | | | | | | CENTER - | | | | | | LABORATORY | | + + + + + + | Albumin/Michelle | 1.6 | 0.8 - 2.0 | [facility] | | | bulin Ratio | | | [facility] | | | | | | MEDICAL | | | | | | CENTER - | | | | | | LABORATORY | | + + + + + + | BUN/Creatin | 16.3 | | [facility] | | | ine Ratio | | | [facility] | | | [facility] | | [facility] | | | | | | CENTER - | | | | | | LABORATORY | | + + + + + + + + | Specimen | + + | Blood | + + + + + + + | Performing | Address | City/State/ZIP Code | Phone Number | | Organization | | | | + + + + + | [facility] | [address] | [place] | [phone] | | [facility] | | [address] | | | - LABORATORY | | | | + + + + + CBC with Differential (07/04/2017 12:35 AM PDT) + +---------+ + + + | Component | Value | Ref Range | Performed | Pathologist | | | | | At | Signature | + +---------+ + + + | White Blood | 6.9 | 4.0 - 11.0 K/uL | [facility] | | | Cells | | | [facility] | | | | | | [facility] | | | | | | CENTER - | | | | | | LABORATORY | | + +---------+ + + + | Red Blood | 5.01 | 3.70 - 5.20 | [facility] | | | Cells | | M/uL | [facility] | | | | | | [facility] | | | | | | CENTER - | | | | | | LABORATORY | | + +---------+ + + + | Hemoglobin | 15.1 | 11.5 - 16.0 | [facility] | | | | | g/dL | [facility] | | | | | | MEDICAL | | | | | | CENTER - | | | | | | LABORATORY | | + +---------+ + + + | Hematocrit | 44.5 | 34.0 - 47.0 % | [facility] | | | | | | [facility] | | | | | | [facility] | | | | | | CENTER - | | | | | | LABORATORY | | + +---------+ + + + | MCV | 88.8 | 83.0 - 101.0 fL | [facility] | | | | | | [facility] | | | | | | [facility] | | | | | | CENTER - | | | | | | LABORATORY | | + +---------+ + + + | MCH | 30.1 | 28.0 - 35.0 pg | [facility] | | | | | | [facility] | | | | | | [facility]ICAL | | | | | | CENTER - | | | | | | LABORATORY | | + +---------+ + + + | MCHC | 33.9 | 32.0 - 36.0 | [facility] | | | | | g/dL | [facility] | | | | | | MEDICAL | | | | | | CENTER - | | | | | | LABORATORY | | + +---------+ + + + | RDW-CV | 14.2 | <15.0 % | [facility] | | | | | | [facility] | | | | | | [facility] | | | | | | CENTER - | | | | | | LABORATORY | | + +---------+ + + + | Platelet | 215 | 140 - 440 K/uL | [facility] | | | Count | | | [facility] | | | | | | [facility] | | | | | | CENTER - | | | | | | LABORATORY | | + +---------+ + + + | MPV | 7.9 | fL | [facility] | | | | | | [facility] | | | | | | [facility]ICAL | | | | | | CENTER - | | | | | | LABORATORY | | + +---------+ + + + | % | 45.4 | 45.0 - 82.0 % | [facility] | | | Neutrophils | | | [facility] | | | | | | MEDICAL | | | | | | CENTER - | | | | | | LABORATORY | | + +---------+ + + + | % | 38.9 | 20.0 - 45.0 % | [facility] | | | Lymphocytes | | | [facility] | | | | | | MEDICAL | | | | | | CENTER - | | | | | | LABORATORY | | + +---------+ + + + | % Monocytes | 11.6 | 4.0 - 12.0 % | [facility] | | | | | | [facility] | | | | | | [facility] | | | | | | CENTER - | | | | | | LABORATORY | | + +---------+ + + + | % | 2.7 | 0.0 - 5.0 % | [facility] | | | Eosinophils | | | [facility] | | [facility] | [facility] | | | [facility] - | | | | | | LABORATORY | | + +---------+ + + + | % Basophils | 1.4 (H) | 0.0 - 1.0 % | [facility] | | | | | | [facility] | | | | [facility] | [facility] | | | | | | [facility] - | | | | | | LABORATORY | | + +---------+ + + + | Absolute | 3.10 | 1.80 - 8.50 | [facility] | | | Neutrophils | | K/uL | [facility] | | | | | [facility] | | | | | | [facility] - | | | | | | LABORATORY | | + +---------+ + + + | Absolute | 2.70 | 0.60 - 3.20 | [facility] | | | Lymphocytes | | K/uL | [facility] | | | | | | [facility] | | | | | | [facility] - | | | | | | LABORATORY | | + +---------+ + + + | Absolute | 0.80 | 0.00 - 1.00 | [facility] | | | Monocytes | | K/uL | [facility] | | | | | | [facility] | | | | | | [facility] - | | | | | | LABORATORY | | + +---------+ + + + | Absolute | 0.20 | 0.00 - 0.40 | [facility] | | | Eosinophils | | K/uL | [facility] | | | | | [facility] | | | | | | [facility] - | | | | | | LABORATORY | | + +---------+ + + + | Absolute | 0.10 | 0.00 - 0.10 | [facility] | | | Basophils | | K/uL | [facility] | [facility] | [facility] | | | | | | [facility] - | | | | | | LABORATORY | | + +---------+ + + + + + | Specimen | + + | Blood | + + + + + + + | Performing | Address | City/State/ZIP Code | Phone Number | | Organization | | | | + + + + + | [facility] | [address] | [place] | [phone] | | [facility] | | [address] | | | - LABORATORY | | | | + + + + + XR Chest PA and Lateral (07/04/2017 12:07 AM PDT) + + | Specimen | + + | | + + + + + | Narrative | Performed At | + + + | XR CHEST PA AND LATERAL 07/04/2017 12:07 AM HISTORY: LEG PAIN | [facility] | | STERNUM PAIN FALL. COMPARISON: None. Findings: Heart size is | | | within normal limits. Aorta is normal. Mediastinum is unremarkable. | | | Central pulmonary vasculature is normal. The bilateral lungs are | | | clear with no evidence for pleural effusion or pneumothorax. Slight | | | S-shaped curvature of the thoracolumbar spine is seen. On the PA | | | view, a linear density is noted over the upper midline of the chest | | | that may be external. IMPRESSION - No acute findings. | | | Dictated and Signed by: Darrion Larson MD Electronically signed: | | | 07/04/2017 8:45 AM | | + + + + + | Procedure Note | + + | Romeo, Rad Results In - 07/04/2017 8:48 AM PDT XR CHEST PA AND LATERAL 07/04/2017 12:07 | | AMHISTORY: LEG PAINSTERNUM PAINFALL.COMPARISON: None.Findings:Heart size is within | | normal limits. Aorta is normal. Mediastinum isunremarkable. Central pulmonary | | vasculature is normal. The bilateral lungs areclear with no evidence for pleural | | effusion or pneumothorax. Slight S-shapedcurvature of the thoracolumbar spine is seen. | | On the PA view, a linear densityis noted over the upper midline of the chest that may be | | external.IMPRESSION -No acute findings.Dictated and Signed by: Darrion Larson MD | | Electronically signed: 07/04/2017 8:45 AM | |Findings: | |Heart size is within normal limits. Aorta is normal. Mediastinum is | |unremarkable. Central pulmonary vasculature is normal. The bilateral lungs are | |clear with no evidence for pleural effusion or pneumothorax. Slight S-shaped | |curvature of the thoracolumbar spine is seen. On the PA view, a linear density | |is noted over the upper midline of the chest that may be external. | | | |IMPRESSION - | |No acute findings. | | | |Dictated and Signed by: Darrion Larson MD | | Electronically signed: 07/04/2017 8:45 AM | + + + +---------+ + + | Performing | Address | City/State/ZIP Code | Phone Number | | Organization | | | | + +---------+ + + | [facility] | | | | + +---------+ + + XR Knee Right 3 Carlos (07/04/2017 12:07 AM PDT) + + | Specimen | + + | | + + + + + | Narrative | Performed At | + + + | XR KNEE RIGHT 3 VW 07/04/2017 12:07 AM HISTORY: LEG PAIN STERNUM | [facility] | | PAIN FALL. COMPARISON: None. FINDINGS: There are no acute | | | osseous findings. No significant degenerative changes are seen. Bone | | | mineralization is normal. There is no significant effusion. Soft | | | tissue structures are unremarkable. IMPRESSION - No acute osseous | | | findings. Dictated and Signed by: Darrion Larson MD | | | Electronically signed: 07/04/2017 8:46 AM | | + + + + + | Procedure Note | + + | Romeo, Rad Results In - 07/04/2017 8:49 AM PDT XR KNEE RIGHT 3 VW 07/04/2017 12:07 AM | | | | HISTORY: LEG PAIN | | STERNUM PAIN | | FALL. | | | | COMPARISON: None. | | | | FINDINGS: | | There are no acute osseous findings. No significant degenerative changes are | | seen. Bone mineralization is normal. There is no significant effusion. Soft | | tissue structures are unremarkable. | | | | IMPRESSION - | | No acute osseous findings. | | | | Dictated and Signed by: Darrion Larson MD | | Electronically signed: 07/04/2017 8:46 AM | + + + +---------+ + + | Performing | Address | City/State/ZIP Code | Phone Number | | Organization | | | | + +---------+ + + | [facility] | | | | + +---------+ + + documented in this encounter Visit Diagnoses + + | Diagnosis | + + | Sternal contusion, initial encounter - Primary | + + | Contusion of multiple sites of right leg, initial encounter | + + | Arm contusion, left, initial encounter | + + documented in this encounter Administered Medications + +--------+ +--------+------+------+ | Medication Order | MAR | Action | Dose | Rate | Site | | | Action | Date | | | | + +--------+ +--------+------+------+ | fentaNYL (PF) injection 50 mcg | Given | 07/04/20 | 50 mcg | | | | 50 mcg, Intravenous, ONCE, Fri | | 12:31 | | | | | 07/04/17 at 0020, For 1 dose | | AM PDT | | | | + +--------+ +--------+------+------+ +---+---+ | | | +---+---+ + + + + +---+---+ | HYDROcodone-acetaminophen | Dispense | 07/04/20 | 1 tablet | | | | (NORCO) 5-325 mg per tablet (ER | to Home | 17 2:15 | | | | | Prepack) 1 tablet 1 tablet, | | AM PDT | | | | | Oral, ONCE, Fri07/04/17 at 0205, | | | | | | | For 1 dose, 1 tablet(s) every 6 | | | | | | | hours prn pain Dispense for home | | | | | | | use., | | | | | | + + + + +---+---+ +---+---+ | | | +---+---+ + +-------+ +--------+---+---+ | iohexol (OMNIPAQUE 350) 350 | Given | 07/04/20 | 70 mLs | | | | mg/mL injection 70 mL 70 mL, | | 17 1:07 | | | | | Intravenous, ONCE PRN, Other, | | AM PDT | | | | | Starting Fri07/04/17 at 0107, For | | | | | | | 1 dose, Cat Scanner | | | | | | + +-------+ +--------+---+---+ +---+---+ | | | +---+---+ + +---------+ +--------+-------+---+ | sodium chloride 0.9% (NS) bolus | New Bag | 07/04/20 | 1,000 | 2000 | | | 1,000 mL 1,000 mL, Intravenous, | | 17 12:31 | mLs | mL/hr | | | Administer over 30 Minutes, | | AM PDT | | | | | ONCE, Fri07/04/17 at 0020, For 1 | | | | | | | dose | | | | | | + +---------+ +--------+-------+---+ +---+---+ | | | +---+---+ documented in this encounter
--- OUTSIDE RECORDS SUMMARY | ~2020-09-03 | XMS | Encounter Summary ---
Demographics + + + | Address | [address] | | | [place] [address] | + + + | Home Phone | | + + + | Preferred Language | Unknown | + + + | Marital Status | | + + + | Taoist Affiliation | 1041 | + + + | Race | Unknown | + + + | Ethnic Group | or | + + + Author + + + | Author | [facility] | | | and [place] | + + + | Organization | [facility] | | | and [place] | + + + | Address | Unknown | + + + | Phone | Unavailable | + + + Support + + + + + | Name | Relationship | Address | Phone | + + + + + | Kristine Gonzáles | ECON | [address] | | | | | [place] [address] | | + + + + + Care Team Providers + +------+ + | Care Vessel Master Name | Role | Phone | + +------+ + PCP | Unavailable | + +------+ + Encounter Details +--------+ + + + + | Date | Type | Department | Care Team | Description | +--------+ + + + + | 12/23/ | Hospital | [facility] | | | | 1991 | Encounter | [facility] | | | | | | CENTER [address] | | | | | | [place] | | | | | | [address] | | | | | | [phone] | | | +--------+ + + + [...]
--- OUTSIDE RECORDS SUMMARY | ~2020-09-03 | XMS | Clinical Summary ---
Demographics + + + | Address | [address] | | | [place] [address] | + + + | Home Phone | | + + + | Preferred Language | Unknown | + + + | Marital Status | | + + + | Jew Affiliation | 1041 | + + + | Race | Unknown | + + + | Ethnic Group | or | + + + Author + + + | Author | [facility] | | | and [place] | + + + | Organization | [facility] | | | and [place] | + + + | Address | Unknown | + + + | Phone | Unavailable | + + + Support + + + + + | Name | Relationship | Address | Phone | + + + + + | Kristine Gonzáles | ECON | [address] | | | | | [place] [address] | | + + + + + Care Team Providers + +------+ + | Care Progressive Assembler And Fitter Name | Role | Phone | + +------+ + | Ryan Hennessy | PCP | | | MD | | | + +------+ + Allergies No Known Active Allergies Medications + +------+ +---------+------+------+-------+ | Medication | Sig | Dispensed | Refills | Star | End | Statu | | | | | | t | Date | s | | | | | | Date | | | + +------+ +---------+------+------+-------+ | | LIQD | | 0 | 07/11 | | Activ | | Pseudoeph-Doxylamine | | | | 01/27 | | e | | -DM-APAP (NYQUIL PO) | | | | 12 | | | + +------+ +---------+------+------+-------+ +---+ + | | Additional | | | InformationPatient | | | not taking. Reason: | | | Not Available, | | | Reported on | | | 07/03/2017 | +---+ + + + +--------+---+------+---+-------+ | acetaminophen | Take 500 mg by mouth | | 0 | | | Activ | | (TYLENOL) 500 mg | every 6 hours as | | | | | e | | tablet | needed for Pain. | | | | | | + + +--------+---+------+---+-------+ | ibuprofen | Take 800 mg by mouth | | 0 | | | Activ | | (ADVIL,MOTRIN) 800 | every 6 hours as | | | | | e | | MG tablet | needed for Pain. | | | | | | + + +--------+---+------+---+-------+ | | Take 1-2 tablets by | 15 | 0 | 01/2 | | Activ | | HYDROcodone-acetamin | mouth EVERY 4 TO 6 | tablet | | 3/20 | | e | | ophen (NORCO) 5-325 | HOURS NEEDED for | | | 18 | | | | mg per tablet | Pain. | | | | | | + + +--------+---+------+---+-------+ Active Problems + + + | Problem | Noted Date | + + + | PURULENT RHINITIS | 03/11/2011 | + + + Social History + + [...] on file | | + + + Last Filed Vital Signs + + + + + | Vital Sign | Reading | Time Taken | Comments | + + + + + | Blood Pressure | 111/67 | 12/02/2017 11:00 AM | | | | | PST | | + + + + + | Pulse | 94 | 12/02/2017 10:44 AM | | | | | PST | | + + + + + | Temperature | 36.2 C (97.1 F) | 12/02/2017 8:31 AM | | | | | PST | | + + + + + | Respiratory Rate | 16 | 12/02/2017 8:35 AM | | | | | PST | | + + + + + | Oxygen Saturation | 100% | 12/02/2017 10:44 AM | | | | | PST | | + + + + + | Inhaled Oxygen | - | - | | | Concentration | | | | + + + + + | Weight | 67.1 kg (148 lb) | 12/02/2017 8:31 AM | | | | | PST | | + + + + + | Height | 149.9 cm (4' 11") | 12/02/2017 8:31 AM | | | | | PST | | + + + + + | Body Mass Index | 29.89 | 12/02/2017 8:31 AM | | | | | PST | | + + + + + Plan of Treatment + + + + + | Health Maintenance | Due Date | Last | Comments | | | | Done | | + + + + + | Vaccine: | | 10/05/19 | | | Dtap/Tdap/Td (6 - | 6 | 96, | | | Tdap) | | 07/03/19 | | | | | 89, | | | | | 02/28/19 | | | | | 88, | | | | | Addition | | | | | al | | | | | history | | | | | exists | | + + + + + | Cervical Cancer | | | | | Screening (Pap) | 3 | | | + + + + + | Vaccine: Influenza | | | | | (#1) | 0 | | | + + + + + Results Not on filefrom Last 3 Months Advance Directives + + + + + | Type | Date Recorded | Patient | Explanation | | | | [employer]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
--- OUTSIDE RECORDS SUMMARY | ~2020-09-03 | XMS | Encounter Summary ---
Demographics + + + | Address | [address] | | | [place] [address] | + + + | Home Phone | | + + + | Preferred Language | Unknown | + + + | Marital Status | | + + + | Taoist Affiliation | 1041 | + + + | Race | Unknown | + + + | Ethnic Group | or | + + + Author + + + | Author | [facility] | | | and [place] | + + + | Organization | [facility] | | | [...] | | | | | [place] [address] | | + + + + + Care Team Providers + +------+ + | Care Telecommunication Tower Technician Name | Role | Phone | + +------+ + PCP | Unavailable | + +------+ + Encounter Details +--------+ + + + + | Date | Type | Department | Care Team | Description | +--------+ + + + + | 12/23/ | Hospital | [facility] | Abdullahi Ferreira | | | 2001 | Encounter | MED CTR XRAY [address] | | | | | [place] | [place], [place] | | | | | [place] [address] | [address] | | | | | [phone] | [phone] | | | | | | | | +--------+ + + + [...]
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
--- OUTSIDE RECORDS SUMMARY | ~2020-09-03 | XMS | Encounter Summary ---
Demographics + + + | Address | [address] | | | [place] [address] | + + + | Home Phone | | + + + | Preferred Language | Unknown | + + + | Marital Status | | + + + | Jew Affiliation | 1041 | + + + | Race | Unknown | + + + | Ethnic Group | or | + + + Author + + + | Author | [facility] | | | and [place] | + + + | Organization | [facility] | | [...] [place] | | | | | [place] [address] | | + + + + + Care Team Providers + +------+ + | Care Floor Broker Name | Role | Phone | + +------+ + PCP | Unavailable | + +------+ + Encounter Details +--------+ + + + + | Date | Type | Department | Care Team | Description | +--------+ + + + + | 02/25/ | Hospital | [facility] | | | | 1993 | Encounter | [facility] | | | | | | CENTER [address] | | | | | | [place] | | | | | | [address] | | | | | | [phone] | | | +--------+ + + + [...]
--- OUTSIDE RECORDS SUMMARY | ~2020-09-03 | XMS | Encounter Summary ---
Demographics + + + | Address | [address] | | | [place] [address] | + + + | Home Phone | | + + + | Preferred Language | Unknown | + + + | Marital Status | | + + + | Islam Affiliation | 1041 | + + + | Race | Unknown | + + + | Ethnic Group | or | + + + Author + + + | Author | [facility] | | | and [place] | + + + | Organization | [facility] | | | [...] | | | | | [place] [address] | | + + + + + Care Team Providers + +------+ + | Care Radiologic Technology Instructor Name | Role | Phone | + +------+ + PCP | Unavailable | + +------+ + Encounter Details +--------+ + + + + | Date | Type | Department | Care Team | Description | +--------+ + + + + | 10/17/ | Hospital | [facility] | [place], | | | 2012 | Encounter | [facility] EM[facility] | Abdullahi Gutierrez MD [address] | | | | CENTER [address] | [address] [place] | | | | | [place], [place] | [place] [address] | | | | | [address] | [phone] | | | | | [phone] | | | | | | | Abdullahi Cha | | | | | | MD Amaury [address] | | | | | | [address] [place] | | | | | | [place] [address] | | | | | | [phone] | | | | | | | [...] + + documented as of this encounter Medications at Time of Discharge [...] as of this encounter ED Notes Abdullahi Cha MD - 10/17/2012 4:10 [place] [address] Patient Name: VIOLET GONZÁLES Provider: Unit #: [id number] Location: : 1985 DATE: 10/17/2012 HISTORY OF PRESENT ILLNESS: This is a 27-year-old female who presents to the emergency ruba reid. She states that she is having intermittent dizziness and lightheadedness over the last 2 weeks, particularly over the last 2 or 3 days. She states that actually she has been havin g the symptoms off and on for the last couple of months, but it has been getting worse. She also reports some numbness and tingling in her face. She also states that she has been not ed by family to have her left pupil larger than her right pupil, but she complains of no vi sual changes. The patient states that she normally feels dizzy if she stands up or gets up quickly. She denies feeling dehydrated. She states that she currently started her period bu t does not feel quite right. REVIEW OF SYSTEMS A complete review of systems completed by me. All components are negative except the above . PAST MEDICAL HISTORY x3. SOCIAL HISTORY: She smokes half pack cigarettes per day, admits to some marijuana use, occ asionally, occasional alcohol use as well. MEDICATIONS: Include Ibuprofen. ALLERGIES: NONE. PHYSICAL EXAMINATION VITAL SIGNS: Blood pressure is 121/69, heart rate 90, respirations 16, O2 saturation 99%, temperature is 98.6. HEENT: Pupils are unequal, left is approximately 4 mm, the right is 2 mm. Approximately 2 mm difference in the size of the left pupil as well as the right pupil. Both pupils are ailyn ctive to light but unequal in size. Extraocular movements intact. NECK: Supple, nontender, no lymphadenopathy. Pharynx is clear. Thyroid appears to be withi n normal limits in size. RESPIRATORY: Equal breath sounds bilaterally. No wheezing, rales or rhonchi. CARDIOVASCULAR: Regular rate and rhythm. ABDOMEN: Soft, nontender, no organomegaly. BACK: Normal to inspection. No CVA tenderness. EXTREMITIES: Nonfocal. Full range of motion. NEUROLOGIC: A and O x4. Cranial nerves 2 through 12 intact. Motor and sensation in all ext remities within normal limits. FURTHER WORKUP: The patient also was complaining initially of being very cold and feeling cold in her hands and feet. I feel that we should do a screen for possibly Raynaud's or galo pus on the patient. Mother does have a history of MS as well as connective tissue disorder run in her family. The patient had a chemistry panel: Sodium 142, potassium 3.2, bicarbonate 24, BUN 15, crea tinine 0.65 with an increased BUN to creatinine ratio of 23.1. Glucose of 114. CBC: White c ount is 6.9, hemoglobin 15.4, platelets of 173. TSH is 1.28. Her sed rate is 4. C-reactive protein is 0.7. The patient had an MRI of the brain, which shows some borderline inferior cerebellar tonsi llar ectopy , but within normal limits, bilateral paraspinal disease but no sign of stroke or otherwise abnormalities. The patient also had a urinalysis which shows increased specific gravity of the urine. I did discuss the patient, her signs and symptoms of dehydration. 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 The patient is referred to the neurologist for furt her workup and followup for this problem. At this point I do not see signs and symptoms of MS or any other central symptoms that may be causing her to be near syncopal. CLINICAL IMPRESSION 1. ANISOCORIA. 2. NEAR SYNCOPE. 3. DEHYDRATION. Of note, the patient does feel better status post 500 mL bolus of IV fluids. DICTATED BY: Abdullahi Cha MD Emergency Medicine JOB #: [id number] EXT JOB #:[id number] <<Signature on File>> Abdullahi Cha MD10/17/12 1936 < documented in this encounter Plan of Treatment Not on filedocumented as of this encounter Procedures + +--------+ + + + | Procedure Name | Priori | Date/Time | Associated Diagnosis | Comments | | | ty | | | | + +--------+ + + + | MRI BRAIN W WO | Routin | 10/18/2012 | | Results for this | | CONTRAST | e | 11:11 AM | | procedure are in the | | | | PST | | results section. | + +--------+ + + + | TSH | Routin | 10/17/2012 | | Results for this | | | e | 2:26 PM | | procedure are in the | | | | PST | | results section. | + +--------+ + + + | SEDIMENTATION RATE | Routin | 10/17/2012 | | Results for this | | | e | 1:58 PM | | procedure are in the | | | | PST | | results section. | + +--------+ + + + | CBC WITH | Routin | 10/17/2012 | | Results for this | | DIFFERENTIAL | e | 1:58 PM | | procedure are in the | | | | PST | | results section. | + +--------+ + + + | C-REACTIVE PROTEIN | Routin | 10/17/2012 | | Results for this | | | e | 1:58 PM | | procedure are in the | | | | PST | | results section. | + +--------+ + + + | BASIC METABOLIC | Routin | 10/17/2012 | | Results for this | | PANEL | e | 1:58 PM | | procedure are in the | | | | PST | | results section. | + +--------+ + + + documented in this encounter Results MRI Brain w wo Contrast (10/18/2012 11:11 AM PST) + + | Specimen | + + | | + + + + + | Narrative | Performed At | + + + | [facility] | [place] | | Department [address] [place] [address] | [facility] | | [ rep [address]] [ rep [facility] | | st zip] Signed | - IMAGING | | | | | Patient Name: VIOLET GONZÁLES | | | Physician: JAN : 1985 Age: 27 Sex: F Unit | | | #: [id number] Exam Date: 10/17/12 Location: | | | ER Report #: [id number] Page: | | | %(RAD)RES..mtdd.print.filter("pg") of %(RAD) | | | RES..mtdd.print.filter("tpg") | | | | | | Accession Number: [id number] | | | MRI BRAIN WITH AND WITHOUT CONTRAST CLINICAL HISTORY: | | | DIZZINESS AND ASYMMETRIC PUPIL SIZE. TECHNIQUE: | | | Multiplanar, multisequence imaging of the brain is performed before | | | and after the administration of 15 mL of Magnevist intravenously. | | | COMPARISON: September 2004. FINDINGS: | | | There is no intra or extraaxial hemorrhage or midline shift. The | | | ventricular spaces, CSF cisterns and sulci show a normal symmetric | | | appearance. Howard-white differentiation is normal. No areas of | | | abnormal signal or architecture are seen in the brain. Diffusion | | | signal is normal. Postcontrast images show no areas of abnormal | | | enhancement and a normal appearance to the intracranial vasculature. | | | Pituitary appears normal. The cerebellar tonsils are somewhat | | | low-lying, descending 6 mm below the foramen magnum. This is a | | | stable appearance for this patient. There is a small | | | amount of fluid in the ethmoid and maxillary sinuses. Mastoids and | | | remaining paranasal sinuses are otherwise normally aerated. No | | | other adjacent abnormalities. IMPRESSION: 1. | | | INCIDENTAL NOTE OF A SMALL AMOUNT OF INFLAMMATORY CHANGE IN ETHMOID | | | AND MAXILLARY SINUSES. 2. LOW-LYING CEREBELLAR TONSILS. | | | 3. OTHERWISE NORMAL MRI OF THE BRAIN. | | | COMMENT: Results of this exam, without significant discordance, were | | | called to the emergency room by the after-hours radiology service | | | on completion of this study. Dictated Date/Time: | | | 10/18/2012 11:11 Transcribed Date/Time: 10/18/2012 11:39 | | | Titrator: [email or web address] <<Signature on File>> | | | | | | Jairon Tinoco MD10/18/12 1824 <Electronically signed by | | | Jairon Tinoco MD> Jairon Tinoco MD 10/18/12 | | | 1111 Titrator: [employer] [id number]/09/12 1139 | | | Abdullahi Bertrand MD | | + + + + + + + + | Performing | Address | City/State/ZIP Code | Phone Number | | Organization | | | | + + + + + | [facility] | [address] | [place] | [phone] | | [facility] | | [address] | | | - IMAGING | | | | + + + + + TSH (10/17/2012 2:26 PM PST) + + + + + + | Component | Value | Ref Range | Performed | Pathologist | | | | | At | Signature | + + + + + + | TSH | 1.28Comment: Testing | 0.34 - 5.60 | [facility] | | | | performed on the [place] | uIU/mL | [facility] | | | | [facility] | | MEDICAL | | | | Analyzer. | | CENTER - | | | | | | LABORATORY | | + + + + + + + + | Specimen | + + | | + + + + + + + | Performing | Address | City/State/ZIP Code | Phone Number | | Organization | | | | + + + + + | [facility] | [address] | [place] | [phone] | | [facility] | | [address] | | | - LABORATORY | | | | + + + + + | [facility] | [address] | [place], [place] | | | [facility] | | [address], [facility] | | | - LABORATORY | | | | + + + + + CBC with Differential (10/17/2012 1:58 PM PST) + +-------+ + + + | Component | Value | Ref Range | Performed | Pathologist | | | | | At | Signature | + +-------+ + + + | MANUAL | NO | | [facility] | | | DIFFERENTIA | | | [facility] | | | L ? | | | MEDICAL | | | | | | CENTER - | | | | | | LABORATORY | | + +-------+ + + + | White Blood | 6.9 | 4.0 - 11.0 K/uL | [facility] | | | Cells | | | [facility] | | | | | | MEDICAL | | | | | | CENTER - | | | | | | LABORATORY | | + +-------+ + + + | Red Blood | 5.15 | 3.70 - 5.20 | [facility] | | | Cells | | M/uL | [facility] | | | | | | MEDICAL | | | | | | CENTER - | | | | | | LABORATORY | | + +-------+ + + + | Hemoglobin | 15.4 | 11.5 - 16.0 | [facility] | | | | | gm/dL | [facility] | | | | | | MEDICAL | | | | | | CENTER - | | | | | | LABORATORY | | + +-------+ + + + | Hematocrit | 46.2 | 34.0 - 47.0 % | [facility] | | | | | | [facility] | | | | | | MEDICAL | | | | | | CENTER - | | | | | | LABORATORY | | + +-------+ + + + | MCV | 89.8 | 83.0 - 101.0 fL | [facility] | | | | | | [facility] | | | | | | MEDICAL | | | | | | CENTER - | | | | | | LABORATORY | | + +-------+ + + + | MCH | 29.9 | 28.0 - 35.0 pg | [facility] | | | | | | [facility] | | | | | | MEDICAL | | | | | | CENTER - | | | | | | LABORATORY | | + +-------+ + + + | MCHC | 33.4 | 32.0 - 36.0 | [facility] | | | | | g/dL | [facility] | | | | | | MEDICAL | | | | | | CENTER - | | | | | | LABORATORY | | + +-------+ + + + | RDW-CV | 13.9 | <15.0 % | [facility] | | | | | | [facility] | | | | | | MEDICAL | | | | | | CENTER - | | | | | | LABORATORY | | + +-------+ + + + | Platelet | 173 | 140 - 440 K/uL | [facility] | | | Count | | | [facility] | | | | | | MEDICAL | | | | | | CENTER - | | | | | | LABORATORY | | + +-------+ + + + | % | 48.0 | 45 - 75 % | [facility] | | | Neutrophils | | | [facility] | | | | | | MEDICAL | | | | | | CENTER - | | | | | | LABORATORY | | + +-------+ + + + | % | 39.2 | 20 - 45 % | [facility] | | | Lymphocytes | | | [facility] | | | | | | MEDICAL | | | | | | CENTER - | | | | | | LABORATORY | | + +-------+ + + + | % Monocytes | 9.8 | 4 - 12 % | [facility] | | | | | | [facility] | | | | | | MEDICAL | | | | | | CENTER - | | | | | | LABORATORY | | + +-------+ + + + | % | 2.0 | 0 - 5 % | [facility] | | | Eosinophils | | | [facility] | | | | | | MEDICAL | | | | | | CENTER - | | | | | | LABORATORY | | + +-------+ + + + | % Basophils | 1.0 | 0 - 1 % | [facility] | | | | | | [facility] | | | | | | MEDICAL | | | | | | CENTER - | | | | | | LABORATORY | | + +-------+ + + + | Absolute | 3.3 | 1.5 - 6.6 K/uL | [facility] | | | Neutrophils | | | [facility] | | | | | | MEDICAL | | | | | | CENTER - | | | | | | LABORATORY | | + +-------+ + + + | Absolute | 2.7 | 0.6 - 3.2 K/uL | [facility] | | | Lymphocytes | | | [facility] | | | | | | MEDICAL | | | | | | CENTER - | | | | | | LABORATORY | | + +-------+ + + + | Absolute | 0.7 | 0.0 - 1.0 K/uL | [facility] | | | Monocytes | | | [facility] | | | | | | MEDICAL | | | | | | CENTER - | | | | | | LABORATORY | | + +-------+ + + + | Absolute | 0.1 | 0.0 - 0.4 K/uL | [facility] | | | Eosinophils | | | [facility] | | | | | | MEDICAL | | | | | | CENTER - | | | | | | LABORATORY | | + +-------+ + + + | Absolute | 0.1 | 0.0 - 0.1 K/uL | [facility] | | | Basophils | | | [facility] | | [...] + | [facility] | [address] | [place] | [phone] | | [facility] | | [address] | | | - LABORATORY | | | | + + + + + | [facility] | [address] | [place] | | | [facility] | | [id number] | | | - LABORATORY | | | | + + + + + Sedimentation Rate (10/17/2012 1:58 PM PST) + +-------+ + + + | Component | Value | Ref Range | Performed | Pathologist | | | | | At | Signature | + +-------+ + + + | Erythrocyte | 4 | 0 - 20 mm/hr | [facility] | | | | | | [facility] | | | Sedimentati | | | MEDICAL | | | on Rate | | | CENTER - | | [...] [address] | [place] | [phone] | | [facility] | | [address] | | | - LABORATORY | | | | + + + + + | [facility] | [address] | [place] | | | [facility] | | [address], [facility] | | | - LABORATORY | | | | + + + + + Basic Metabolic Panel (10/17/2012 1:58 PM PST) + + + + + + | Component | Value | Ref Range | Performed | Pathologist | | | | | At | Signature | + + + + + + | Glucose | 114 (H) | 70 - 109 mg/dL | [facility] | | | | | | [facility] | | | | | | MEDICAL | | | | | | CENTER - | | | | | | LABORATORY | | + + + + + + | Calcium | 8.7 | 8.3 - 10.5 | [facility] | | | | | mg/dL | [facility] | | | | | | MEDICAL | | | | | | CENTER - | | | | | | LABORATORY | | + + + + + + | BUN | 15 | 7 - 18 mg/dL | [facility] | | | | | | [facility] | | | | | | MEDICAL | | | | | | CENTER - | | | | | | LABORATORY | | + + + + + + | Creatinine | 0.65 | 0.60 - 1.30 | [facility] | | | | | mg/dL | [facility] | | | | | | MEDICAL | | | | | | CENTER - | | | | | | LABORATORY | | + + + + + + | Estimated | >60Comment: For | >60 mL/min/A | [facility] | | | GFR | -Americans, | | [facility] | | | | please multiply the | | MEDICAL | | | | result by 1.210 | | CENTER - | | | | This is an estimated | | LABORATORY | | | | GFR and is based on a | | | | | | standard adult | | | | | | body mass (A=1.73m2) and | | | | | | serum creatinine | | | | + + + + + + | BUN/Creatin | 23.1 (H) | 12 - 20 | [facility] | | | ine Ratio | | | [facility] | | | | | | MEDICAL | | | | | | CENTER - | | | | | | LABORATORY | | + + + + + + | Na | 142 | 136 - 149 mEq/L | [facility] | | | | | | [facility] | | | | | | MEDICAL | | | | | | CENTER - | | | | | | LABORATORY | | + + + + + + | K | 3.2 (L) | 3.5 - 5.1 mEq/l | [facility] | | | | | | [facility] | | | | | | MEDICAL | | | | | | CENTER - | | | | | | LABORATORY | | + + + + + + | Cl | 110 (H) | 98 - 109 mEq/l | [facility] | | | | | | [facility] | | | | | | MEDICAL | | | | | | CENTER - | | | | | | LABORATORY | | + + + + + + | CO2 | 24 | 24 - 31 mEq/L | [facility] | | | | | | [facility] | | | | | | MEDICAL | | | | | | CENTER - | | | | | | LABORATORY | | + + + + + + | Anion Gap | 11.2 | 6.0 - 17.0 | [facility] | | | | | [...] + | [facility] | [address] | [place] | [phone] | | [facility] | | [address] | | | - LABORATORY | | | | + + + + + | [facility] | [address] | [place] | | | [facility] | | [address] [place] [address] | | | - LABORATORY | | | | + + + + + C-Reactive Protein (10/17/2012 1:58 PM PST) + + + + + + | Component | Value | Ref Range | Performed | Pathologist | | | | | At | Signature | + + + + + + | CRP | 0.7Comment: Levels >8.0 | <8.0 mg/L | [facility] | | | | mg/L indicate possible | | [facility] | | | | infection, trauma, | | MEDICAL | | | | cardiac infarct or | | CENTER - | | | | neoplastic | | LABORATORY | | | | proliferation. | | | | + + + + + + + + | Specimen | + + | | + + + + + + + | Performing | Address | City/State/ZIP Code | Phone Number | | Organization | | | | + + + + + | [facility] | [address] | [place] | [phone] | | [facility] | | [address] | | | - LABORATORY | | | | + + + + + | [facility] | [address] | [place] | | | [facility] | | [id number] [place] [address] | | | - LABORATORY | | | | + + + + + documented in this encounter Visit Diagnoses Not on filedocumented in this encounter
[~2020-09-03 15:49] MED LIST: ALEVE220 MG PO; AUGMENTIN 875-1 EACH PO; CYCLOBENZAPRINE10 MG PO; DOXYCYCLINE HY100 MG PO; IBUPROFEN600 MG PO; IMITREX25 MG PO; KEFLEX500 MG PO; METHADONE HCL10 MG PO; NORCO 5-325 TA1 EACH PO; ONDANSETRON HCL4 MG PO; OXYCONTIN30 MG PO; PROZAC20 MG PO; RISPERIDONE0.5 MG PO; TOPAMAX25 MG PO
--- OUTSIDE RECORDS SUMMARY | 2020-09-03 15:52 | XMS ---
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 Daniel has no Care Guidelines for this patient. Misty VISIT COUNT (12 MO.) 1 MAX Daniel TOTAL 1 NOTE: Visits indicate total known visits. ED/C VISIT TRACKING (12 MO.) 09/03/2020 15:50 MAX Ta OR TYPE: Emergency COMPLAINT: - FOREIGN OBJECT INPATIENT VISIT TRACKING (12 MO.) No inpatient visits to display in this time frame [email or web address]
== END 2020-09-03 19:27 | disposition home or self-care (01) ==
LOC: ED 15:49
DX: K59.00 Constipation, unspecified (principal); Z03.821 Encounter for observation for suspected ingested foreign body ruled out; F17.200 Nicotine dependence, unspecified, uncomplicated; Z88.0 Allergy status to penicillin
CPT/HCPCS: 74177; 80053; 85025; 96361; 99284-25; J2405; J7030

== ENCOUNTER 2020-09-08 18:12 | Emergency (ER) | payer OTHER ==
[~2020-09-08] VITALS: Ht 152.4 cm; Wt 64.0 kg
--- OUTSIDE RECORDS SUMMARY | 2020-09-08 18:14 | XMS ---
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 Daniel has no Care Guidelines for this patient. Misty VISIT COUNT (12 MO.) 2 [facility]Fay Alex TOTAL 2 NOTE: Visits indicate total known visits. ED/C VISIT TRACKING (12 MO.) 09/08/2020 18:12 [facility] [place] TYPE: Emergency COMPLAINT: - FOREIGN BODY 09/03/2020 15:50 [facility] [place] TYPE: Emergency COMPLAINT: - FOREIGN OBJECT DIAGNOSES: - Allergy status to penicillin - Nicotine dependence, unspecified, uncomplicated - ENCTR FOR OBSERVATION FOR SUSPECTED INGESTED FB RU - Constipation, unspecified INPATIENT VISIT TRACKING (12 MO.) No inpatient visits to display in this time frame [email or web address]
== END 2020-09-09 00:36 | disposition home or self-care (01) ==
LOC: ED 18:12
DX: T18.9XXA Foreign body of alimentary tract, part unspecified, initial encounter (principal); F32.9 Major depressive disorder, single episode, unspecified; G43.909 Migraine, unspecified, not intractable, without status migrainosus; Z88.0 Allergy status to penicillin
CPT/HCPCS: 74018; 74177; 80053; 81001; 83690; 85025; 99284-25; Q9967

== ENCOUNTER 2024-08-26 18:48 | Emergency (ER) | payer OTHER ==
[~2024-08-26] VITALS: Ht 152.4 cm; Wt 68.4 kg
[~2024-08-26 18:48] MED LIST changes: +ONDANSETRON ODT4 MG PO; +ONDANSETRON ODT8 MG PO; +TAMIFLU75 MG PO
--- OUTSIDE RECORDS SUMMARY | 2024-08-26 18:55 | XMS ---
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 E.D. VISIT COUNT (12 MO.) 3 [facility] [place] [facility] ([place]) TOTAL 4 NOTE: Visits indicate total known visits. ED/UCC VISIT TRACKING (12 MO.) 08/26/2024 18:48 [facility] [place] TYPE: Emergency COMPLAINT: - COLD SYMPTOMS 02/15/2024 15:00 [facility] [place] TYPE: Emergency COMPLAINT: - FLU SYMPTOMS DIAGNOSES: - Headache, unspecified - Tachycardia, unspecified 12/28/2023 07:43 [facility] [place] ([place]) TYPE: Emergency DIAGNOSES: - Pneumonia, unspecified organism - flu +, sob - Flu Like Symptoms 12/24/2023 13:34 [facility] [place] TYPE: Emergency COMPLAINT: - FLU/COLD SYMPTOMS DIAGNOSES: - Cough, unspecified - Influenza due to other identified influenza virus with other respiratory manifestations - Nicotine dependence, cigarettes, uncomplicated INPATIENT VISIT TRACKING (12 MO.) [facility]23 07[facility] DIAGNOSES: - Influenza due to unidentified influenza virus with unspecified type of pneumonia - Pneumonia, unspecified organism - Sepsis, unspecified organism - Tachycardia, unspecified [email or web address]
[2024-08-26 20:43] LABS: INFLUENZA B NAA NEGATIVE (NEGATIVE); RESPIRATORY SYNCYTIAL VIR NAA NEGATIVE (NEGATIVE)
[2024-08-26] MEDS ORDERED: AMOX TR-K CLV1 EAC1 PO (20:55)
[2024-08-26] MEDS ORDERED: AMOXICILLIN/CLAVULANATE K 875 MG HOME.PACK PO ONE (21:00)
[2024-08-26] MEDS ORDERED: methylPREDNISolone 4 MG HOME.PACK PO ONE (21:00)
[2024-08-26 21:07] VITALS: BP 116/62
== END 2024-08-26 21:09 | disposition home or self-care (01) ==
LOC: ED 18:48
PROVIDERS: Family Medicine
DX: J32.9 Chronic sinusitis, unspecified (principal); Z11.52 Encounter for screening for COVID-19
CPT/HCPCS: 71045; 87502; 99283-25; U0002

== ENCOUNTER 2025-08-27 06:46 | Observation (INO) | payer OTHER ==
[~2025-08-27] VITALS: Ht 152.4 cm; Wt 66.5 kg
[~2025-08-27 06:46] MED LIST changes: +AMOX TR-K CLV1 EAC1 PO
[2025-08-27] MEDS ORDERED: ALBUTEROL/IPRATROPIUM 3 ML NEB ONE (06:50)
--- OUTSIDE RECORDS SUMMARY | 2025-08-27 06:51 | XMS ---
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 EPerla VISIT COUNT (12 MO.) Humera Daniel TOTAL 1 NOTE: Visits indicate total known visits. ED/UCC VISIT TRACKING (12 MO.) 08/27/2025 06:[address] [facility] [address] [facility] Venegas [place] TYPE: Emergency COMPLAINT: - SHORTNESS OF BREATH INPATIENT VISIT TRACKING (12 MO.) No inpatient visits to display in this time frame [email or web address]
[2025-08-27] MEDS ORDERED: ALBUTEROL/IPRATROPIUM 3 ML NEB INH PRN ×2 (07:00→21:15)
[2025-08-27] MEDS ORDERED: HYDROmorphone HCL 1 MG/ML SYR IV PRN (07:15)
[2025-08-27] MEDS ORDERED: KETOROLAC TROMETHAMINE 30 MG/ML VIAL IV ONE (07:15)
[2025-08-27 07:56] LABS: ALT (SGPT) 19 U/L (14-59); AST (SGOT) 22 U/L (15-37); GLOMERULAR FILTRATION RATE,EST 112 mL/min (>60); PROTEIN, TOTAL 7.8 g/dL (6.4-8.2); UREA NITROGEN 9 mg/dL (7-18)
[2025-08-27] MEDS ORDERED: ALBUTEROL SULFATE 0.083% 3 ML VIAL INH ONE (08:45)
[2025-08-27 08:51] LABS: BASOPHILS 0.7 % (0.1-1.2); EOSINOPHILS 0.4 % (0.7-5.8); LYMPHOCYTES 7.3 % (19.3-51.7); MCH 29.5 PG (25.6-32.2); MCHC 34.2 g/dL (32.2-35.5); MCV 86.3 fL (79.4-94.8); MONOCYTES 5.8 % (4.7-12.5); NEUTROPHILS 85.4 % (34.0-71.1); RBC 4.61 M/uL (3.93-5.22)
[2025-08-27 09:10] LABS: LACTIC ACID, BLOOD 1.2 mmol/L (0.4-2.0)
[2025-08-27] MEDS ORDERED: SODIUM CHLORIDE 0.9% 1,000 ML IV ONE (09:15)
[2025-08-27 11:10] LABS: CORONAVIRUS COVID-19 AG NEGATIVE (NEGATIVE)
[2025-08-27] MEDS ORDERED: ALBUTEROL/IPRATROPIUM 3 ML NEB INH ONE ×2 (12:15→17:00)
--- NOTE | 2025-08-27 14:36 | EKG ---
[facility] [address] [facility] [place] [address] Signed Sinus tachycardia Right atrial enlargement Rightward axis Pulmonary disease pattern Possible Inferior infarct , age undetermined Abnormal ECG When compared with ECG of 15-FEB-2024 16:39, Borderline criteria for Inferior infarct are now present T wave inversion now evident in Anterior leads Confirmed by AMANDO CORDERO MD ([id number]) on 08/27/2025 2:35:41 PM Electronically Signed By: AMANDO CORDERO 08/27/25 1436 PATIENT NAME: VIOLET JOHNSTON Electrocardiogram DATE OF : 81 PHYSICIAN: AMANDO CORDERO REPORT #: [id number] REPORT IS CONFIDENTIAL AND NOT TO BE RELEASED WITHOUT AUTHORIZATION
[2025-08-27] MEDS ORDERED: PREDNISONE20 MG PO (15:09)
[2025-08-27] MEDS ORDERED: VENTOLIN HFA18 GM INH (15:09)
[2025-08-27] MEDS ORDERED: ALBUTEROL SULFATE 8 GM HOME.PACK INH ONE (15:15)
[2025-08-27] MEDS ORDERED: ACETAMINOPHEN 325 MG TAB PO PRN (19:30)
[2025-08-27] MEDS ORDERED: AZITHROMYCIN 500 MG in DEXTROSE 5% 250 ML IV SCH (19:33)
[2025-08-27] MEDS ORDERED: ENOXAPARIN SODIUM 40 MG/0.4 ML SYR SUB-Q SCH (19:35)
[2025-08-27] MEDS ORDERED: PANTOPRAZOLE SODIUM 40 MG TABEC PO SCH (19:35)
[2025-08-27] MEDS ORDERED: ALBUTEROL/IPRATROPIUM 3 ML NEB INH SCH (20:00)
[2025-08-27 20:23] VITALS: BP 94/51
--- NOTE | 2025-08-27 20:32 | NUR ---
Pt admitted to room 119 via stretcher from the ER. sob with exertion, Cooperative.
[2025-08-27] MEDS ORDERED: BUDESONIDE 0.5 MG/2 ML VIAL INH SCH (21:07)
[2025-08-27 21:09] VITALS: BP 94/51
[2025-08-27] MEDS ORDERED: BUDESONIDE 0.5 MG/2 ML VIAL ONE (21:10)
--- NOTE | 2025-08-27 21:12 | NUR ---
PT C/O H/A ON ADMIT, MEDICATED WITH TYLENOL 650MG PO AND ICE PACK TO BACK OF HEAD, COLD WET TOWEL TO FOREHEAD HER REQUEST. COOPERATIVE WITH ADMIT QUESTIONS AND ASSESSMENTS. TACHEIPNEIC AND TACHY WITH EXERTION. ON ROOM AIR, LUNGS VERY COARSE AND TIGHT, DENIES SOB BUT SOB WITHE EXERTION WAS NOTED DURING ADMIT. STEVEN BROWNING TODAY. PLEASANT AND COOPERATIVE R CENTRAL LINE PATENT. MED TEACHING DONE ON TYLENOL, LOVENOX SQ, AZITHROMAX IC ABX AND PEPCID. STATED UNDERTANDING, TELE #[address] PER ORDERS CPOX AT BEDSIDE. ORIENTED TO ROOM AND PROCEDURES, STATED UNDERSTANDING
--- NOTE | 2025-08-27 21:23 | NUR ---
VIOLET STATES THAT SHE DOES NOT HAVE ANY INHALED RESPIRATORY MEDICATIONS AT HOME. SHE WOULD BENEFIT FROM A HOME NEBULIZER WITH BROVANA BID, PULMICORT BID, AND ALBUTEROL Q2 PRN. VIOLET WAS ABLE TO USE THE CORNET +5 W/O DIFFICULTY.
--- NOTE | 2025-08-27 21:37 | NUR ---
RT NOTIFIED THIS BURNER HAND THAT PT IS NAUSEATED. PRN ADMINISTERED. PRIMARY RN UPDATED. PT DENIES FURTHER NEEDS AT THIS TIME. CALL LIGHT IN REACH.
--- NOTE | 2025-08-27 22:19 | NUR ---
used call light, up to BRP, vided dark yellow urine, pt on menses at this time. on room air, cpox at bedside. tele#[address], tachychardic up to 135 when up. sob with exertion noted. Back to bed SBA. tolerated IV abx. repositions self in bed
--- NOTE | 2025-08-27 23:52 | NUR ---
Resting, on room air, no ss/x distress. cpox on at bedside, sats WNL, tele#[address] SR at this time repositions self in bed
[2025-08-28 00:05] VITALS: BP 92/49
--- NOTE | 2025-08-28 01:07 | NUR ---
Resting, eyes closed, on room air, no s/sx distress at this time, CPOX on at bedside. tele #[address] repositions self in bed
--- NOTE | 2025-08-28 03:41 | NUR ---
Resting, eyes closed, no s/sx distress, on room air, cpox on at bedside, sats 90% tele#[address] HR80 ar
[2025-08-28 04:31] VITALS: BP 92/50
[2025-08-28 05:20] LABS: BASOPHILS 0.2 % (0.1-1.2); EOSINOPHILS 0 % (0.7-5.8); LYMPHOCYTES 10.9 % (19.3-51.7); MCH 29.8 PG (25.6-32.2); MCHC 34.9 g/dL (32.2-35.5); MCV 85.5 fL (79.4-94.8); MONOCYTES 8.3 % (4.7-12.5); NEUTROPHILS 80.1 % (34.0-71.1); RBC 3.99 M/uL (3.93-5.22)
--- NOTE | 2025-08-28 05:21 | NUR ---
awakens easily, no c/o pain, dry non productive cough present, lungs with crackles t/o and thight at bases, no sob noted onreturn, tachychardic up to 112 when up, and 78 at rest on return. sats 93% room air
[2025-08-28 05:23] VITALS: BP 92/50
[2025-08-28 05:39] LABS: GLOMERULAR FILTRATION RATE,EST 121.0 mL/min (>60); UREA NITROGEN 9.0 mg/dL (7-18)
--- NOTE | 2025-08-28 07:10 | NUR ---
REPORT RECEIVED FROM CD [employer]ORAGE AND MATERIALS MAKE UP HELPER RN MATHIEU. PATIENT IS LYING IN BED ON HER RIGHT SIDE WITH EYES CLOSED AND RESPIRATIONS ARE EVEN AND UNLABORED. CALL LIGHT AND PERSONAL BELONGINGS ARE WITHIN REACH. TV IS ON.
--- NOTE | 2025-08-28 07:52 | NUR ---
PT ASSISTED WITH SETTING UP BREAKFAST TRAY. TYLENOL GIVEN FOR 5/10 HEADACHE AND 7/10 BACK PAIN PER PT REQUEST. PT STATES NO FURTHER NEEDS AT THIS TIME, CALL LIGHT WITHIN REACH.
--- NOTE | 2025-08-28 08:19 | NUR ---
PATIENT IS LYING IN BED AT THIS TIME WITH EYES OPEN AND RESPIRATIONS ARE EVEN AND UNLABORED. BREAKFAST TRAY CLEARED FROM THE PATIENT ROOM. PATIENT IS USING THE ACCAPELLA. CALL LIGHT AND PERSONAL BELONGINGS ARE WITHIN REACH.
--- NOTE | 2025-08-28 08:25 | NUR ---
PATIENT IS LYING IN BED WITH HOB ELEVATED. PATIENT WITH EYES OPEN AND RESPIRATIONS ARE EVEN AND UNLABORED. FULL ASSESSMENT COMPLETE AND DOCUMENTED IN THE CHART. PATIENT IS ON ROOM AIR. LUNG SOUNDS WITH EXPIRATORY WHEEZES IN THE BILATERAL UPPER LOBES. DIMINISHED WITH CRACKLES AUSCULTATED IN THE BILATERAL LOWER LOBES. PATIENT IS ON TELEMETRY NUMBER [id number] AND SINUS TACHYCARDIA. CPOX AT BEDSIDE. PATIENT REPORTED PAIN 7/10 IN HER BACK. TYLENOL ADMINISTERED AT [id number]. PATIENT STATED NO FURTHER NEEDS AT THIS TIME. CALL LIGHT AND PERSONAL BELONGINGS ARE WITHIN REACH.
[2025-08-28] MEDS ORDERED: AZITHROMYCIN250 MG PO (08:47)
--- NOTE | 2025-08-28 08:52 | NUR ---
NOTIFIED OF PATIENT HR OF 110-120'S. STATED TO D/C TELEMETRY AND TO CONTINUE WITH THE PATIENT BEING DISCHARGED. NO NEW ORDERS AT THIS TIME.
[2025-08-28] MEDS ORDERED: predniSONE 20 MG TAB PO SCH (09:00)
[2025-08-28 09:23] VITALS: BP 97/48
[2025-08-28] MEDS ORDERED: PREDNISONE20 MG PO (11:03)
[2025-08-28] MEDS ORDERED: VENTOLIN HFA18 GM INH (11:03)
--- NOTE | 2025-08-28 11:25 | NUR ---
PT DRESSES SELF IN OWN CLOTHES, PT HAS ALL PERSONAL BELONGINGS PACKED IN [employer] BELONGING BAGS.
[2025-08-28] MEDS ORDERED: PHARMACY RENAL DOSE ADJUSTMENT 1 DOSE MISC PO SCH (12:00)
== END 2025-08-28 11:30 | disposition home or self-care (01) ==
LOC: ED 06:46 → MS 06:47
PROVIDERS: Emergency Medicine; Family Medicine; ADMIT Internal Medicine; ATTEND Internal Medicine
DX: R06.2 Wheezing (principal); R00.0 Tachycardia, unspecified; B34.9 Viral infection, unspecified
CPT/HCPCS: 36415; 36556; 36592; 71045; 71260; 80048; 80053; 83605; 83735; 84484; 84703; 85025; 87040; 94640; 94667; 94668; 94762; 94799; 96365; 96366; 96367; 96372; 96375; 96376; 99285-25; A9270; G0378; J0456; J0696; J1171; J1650; J1885; J2405; J2919; J7030; J7060; J7512; Q9967